=== PATIENT | female | born 1990 | race Caucasian/White ===

== ENCOUNTER 2018-05-02 00:53 | Emergency (ER) | payer OTHER ==
--- NOTE | 2018-05-02 01:00 | ED Physician Documentation ---
PD HPI BACK PAIN - Stated complaint Stated Complaint: BK PX - History obtained from History obtained from: Patient - History of Present Illness Timing - onset: Enter time (06:00), Yesterday (05/01/18) Timing - details: Abrupt onset Pain level now: 10 Location: Lower, Right, Left Quality: Pain Improves with: Rest Worsened by: Movement, Twisting Similar symptoms before: Has not had sx before Recently seen: Not recently seen - Additional information Additional information: c/o pain across lower back radiating around both flanks/sides to front. No specific inciting event; she noticed the pain when she woke yesterday morning at approximately 6 AM and it has gradually, steadily worsened. It is distinctly worse with movement. No h/o similar pain. Review of Systems Constitutional: denies: Fever, Chills, Sweats Cardiac: reports: Reviewed and negative Respiratory: reports: Reviewed and negative GI: denies: Abdominal Pain, Nausea, Vomiting, Constipation, Diarrhea : denies: Dysuria, Frequency, Incontinent Musculoskeletal: reports: Back pain Neurologic: denies: Focal weakness, Numbness PD PAST MEDICAL HISTORY - Past Medical History Past Medical History: No - Past Surgical History Past Surgical History: Yes Ortho: Knee replacement /LIFEGUARD: section - Present Medications Home Medications: Ambulatory Orders Medication Instructions Recorded Confirmed Cyclobenzaprine [Flexeril] 10 mg PO TID PRN #14 tablet 05/02/18 Multivitamin [Multiple Vitamins] 1 tab PO DAILY 05/02/18 05/02/18 oxyCODONE [Roxicodone] 2.5 mg PO Q6H PRN #10 tablet 05/02/18 - Allergies Allergies/Adverse Reactions: Allergies Allergy/AdvReac Type Severity Reaction Status Date / Time latex AdvReac Rash Verified 05/02/18 01:13 PD ED PE NORMAL - Vitals Vital signs reviewed: Yes - General General: Alert and oriented X 3, Well developed/nourished, Other (appears to be uncomfortable) - Cardiac Cardiac: RRR, No murmur - Respiratory Respiratory: No respiratory distress, Clear bilaterally - Abdomen Abdomen: Normal bowel sounds, Soft, Non tender, Non distended - Back Back: No CVA TTP, No spinal TTP - Derm Derm: Normal color, Warm and dry - Extremities Extremities: No edema - Neuro Neuro: No motor deficit (5/5 bilateral dorsi/plantarflexion), No sensory deficit, Other (1+/4 bilateral patellar DTR. ) Results - Vitals Vitals: Vital Signs - 24 hr 05/02/18 05/02/18 05/02/18 01:00 03:22 04:01 Temperature 36.4 C L 36.3 C L Heart Rate 86 74 75 Respiratory 17 18 16 Rate Blood Pressure 117/59 L 94/54 L 105/51 L O2 Saturation 98 98 98 Oxygen O2 Source Room air - Labs Labs: Laboratory Tests 05/02/18 05/02/18 05/02/18 01:09 01:45 01:45 WBC 9.4 RBC 4.13 L Hgb 12.5 Hct 36.1 L MCV 87.3 MCH 30.3 MCHC 34.7 RDW 12.8 Plt Count 260 MPV 8.2 Neut # (Auto) 6.7 H Lymph # (Auto) 1.8 [place] # (Auto) 0.6 Eos # (Auto) 0.3 Baso # (Auto) 0.1 Absolute Nucleated RBC 0.01 Nucleated RBC % 0.1 Sodium 135 Potassium 3.8 Chloride 103 Carbon Dioxide 24 Anion Gap 8.0 BUN 12 Creatinine 0.5 Estimated GFR (MDRD) 147 Glucose 116 H Calcium 8.3 L Total Bilirubin 0.3 AST 23 ALT 20 Alkaline Phosphatase 39 L Total Protein 6.8 Albumin 3.7 Globulin 3.1 Albumin/Globulin Ratio 1.2 Lipase 217 H HCG, Quant Urine Color YELLOW Urine Clarity CLEAR Urine pH 7.5 Ur Specific [place] 1.015 Urine Protein NEGATIVE Urine Glucose (UA) NEGATIVE Urine Ketones NEGATIVE Urine Occult Blood SMALL H Urine Nitrite NEGATIVE Urine Bilirubin NEGATIVE Urine Urobilinogen 0.2 (NORMAL) Ur Leukocyte Esterase NEGATIVE Urine RBC 6-10 H Urine WBC 0-3 Ur Squamous Epith Cells FEW Squamous Urine Bacteria Rare Ur Microscopic Review INDICATED Urine Culture Comments NOT INDICATED Urine HCG, Qual POSITIVE 05/02/18 01:45 WBC RBC Hgb Hct MCV MCH MCHC RDW Plt Count MPV Neut # (Auto) Lymph # (Auto) [place] # (Auto) Eos # (Auto) Baso # (Auto) Absolute Nucleated RBC Nucleated RBC % Sodium Potassium Chloride Carbon Dioxide Anion Gap BUN Creatinine Estimated GFR (MDRD) Glucose Calcium Total Bilirubin AST ALT Alkaline Phosphatase Total Protein Albumin Globulin Albumin/Globulin Ratio Lipase HCG, Quant 08995.00 Urine Color Urine Clarity Urine pH Ur Specific [place] Urine Protein Urine Glucose (UA) Urine Ketones Urine Occult Blood Urine Nitrite Urine Bilirubin Urine Urobilinogen Ur Leukocyte Esterase Urine RBC Urine WBC Ur Squamous Epith Cells Urine Bacteria Ur Microscopic Review Urine Culture Comments Urine HCG, Qual - Rads (name of study) pelvic US Radiology: Prelim report reviewed, See rad report PD MEDICAL DECISION MAKING - ED course Complexity details: reviewed results, re-evaluated patient, considered differential, d/w patient ED course: Patient has been trying to get , and thus, although she was unaware she is now , the test result wasn't particularly surprising to her. US and blood tests provided reassuring results and I reviewed these results with patient. There is a mildly elevated lipase, but her pain does not correlate with this finding (pain is across the low back at the level of the upper sacrum). Departure - Departure Disposition: 01 Home, Self Care Clinical Impression: Back pain, Condition: Good Instructions: NARCOTIC, Oral, ED Neck Back Pain General Follow-Up: Ben Lindquist ARNP [Primary Care Provider] - (Call this morning to arrange for next available appointment) Prescriptions: Cyclobenzaprine [Flexeril] 10 mg PO TID PRN #14 tablet PRN Reason: Spasms oxyCODONE [Roxicodone] 2.5 mg PO Q6H PRN #10 tablet PRN Reason: Pain Forms: Activity restrictions Discharge Date/Time: 05/02/18 04:10
[2018-05-02 01:12] LABS: BILIRUBIN,URINE NEGATIVE (NEGATIVE); GLUCOSE, URINE (UA) NEGATIVE (NEGATIVE); KETONES,URINE (UA) NEGATIVE (NEGATIVE); LEUKOCYTE ESTERASE, URINE NEGATIVE (NEGATIVE); NITRITE,URINE NEGATIVE (NEGATIVE); OCCULT BLOOD,URINE SMALL (NEGATIVE); PH,URINE 7.5 PH (5.0-7.5); PROTEIN,URINE NEGATIVE (NEGATIVE); UROBILINOGEN,URINE 0.2 (NORMAL) E.U./dL (NORMAL)
[2018-05-02 01:14] LABS: CLARITY,URINE CLEAR (CLEAR); HCG UR QUAL POSITIVE
[2018-05-02 01:18] LABS: BACTERIA,URINE Rare /HPF (None Seen); SQUAMOUS EPITHELIAL CELL,UR FEW Squamous (<= Few)
[2018-05-02] MEDS ORDERED: ACETAMINOPHEN 325 MG TABLET PO STA (01:32)
[2018-05-02] MEDS ORDERED: CYCLOBENZAPRINE 10 MG TABLET PO STA (01:33)
[2018-05-02 01:51] LABS: BASOPHILS # (AUTO) 0.1 10^3/uL (0.0-0.1); BASOPHILS % (AUTO) 0.5 %; EOSINOPHILS # (AUTO) 0.3 10^3/uL (0.0-0.7); EOSINOPHILS % (AUTO) 2.9 %; HGB - HEMOGLOBIN 12.5 g/dL (12.0-16.0); LYMPHOCYTES # (AUTO) 1.8 10^3/uL (1.5-3.5); LYMPHOCYTES % (AUTO) 18.8 %; MEAN CORPUSCULAR HEMOGLOBIN 30.3 pg (27.0-31.0); MEAN CORPUSCULAR HGB CONC 34.7 g/dL (32.0-36.0); MEAN CORPUSCULAR VOLUME 87.3 fL (81.0-99.0); MEAN PLATELET VOLUME 8.2 fL (7.9-10.8); MONOCYTES # (AUTO) 0.6 10^3/uL (0.0-1.0); MONOCYTES % (AUTO) 6.4 %; NEUTROPHILS # (AUTO) 6.7 10^3/uL (1.5-6.6); NEUTROPHILS % (AUTO) 71.4 %; PLT - PLATELET COUNT 260 10^3/uL (130-450); RED BLOOD COUNT 4.13 10^6/uL (4.20-5.40); RED CELL DISTRIBUTION WIDTH 12.8 % (12.0-15.0); WHITE BLOOD COUNT 9.4 x10^3/uL (4.8-10.8)
[2018-05-02] MEDS ORDERED: ONDANSETRON ODT 4 MG TABLET TL STA (01:55)
[2018-05-02 02:02] LABS: ALBUMIN 3.7 g/dL (3.2-5.5); ALBUMIN/GLOBULIN RATIO 1.2 (1.0-2.2); BILIRUBIN,TOTAL 0.3 mg/dL (0.2-1.0); CALCIUM 8.3 mg/dL (8.5-10.3); CREATININE 0.5 mg/dL (0.4-1.0); TOTAL PROTEIN 6.8 g/dL (6.7-8.2)
--- NOTE | 2018-05-02 03:24 | Ultrasound Report ---
Reason: , pelvic/back pain Procedure Date: 05/02/2018 Accession Number: [id number] / [id number] Procedure: US - OB First Trimester CPT Code: FULL RESULT: EXAM: FIRST TRIMESTER OBSTETRIC ULTRASOUND (Less than 11 weeks) EXAM DATE: 05/02/2018 03:05 AM. CLINICAL HISTORY: , pelvic/back pain. LMP: Unknown. COMPARISONS: None. TECHNIQUE: Transabdominal and transvaginal ultrasound examination with static image documentation. CLINICAL DATES: EGA unknown. ASSESSMENT: Gestational Sac: Single intrauterine. Mean gestational sac diameter: 27.2 mm = 7 weeks 3 days. Embryo: CRL (crown-rump length) 15.2 mm = 7 weeks 6 days. Cardiac activity: 157 beats per minute. Yolk sac: 3.9 mm. Amniotic fluid: Not accurately assessed at this gestational age. Early placenta: Not visible at this gestational age. Other: No perigestational fluid collection demonstrated. MATERNAL STRUCTURES: Uterus: Anteverted. Unremarkable. Cervix: Closed. Right Ovary/Adnexa: The ovary measures 5.0 x 2.2 x 2.5 cm, volume 14.3 cc. Possible corpus luteum measuring 1.5 x 1.7 x 1.3 cm. Left Ovary/Adnexa: The ovary measures 4.9 x 2.4 x 2.8 cm, volume 17.2 cc. Unremarkable. Free Fluid: None. Other: None. IMPRESSION: 1. Single viable intrauterine at EGA 7 weeks 6 days with JUAN PABLO 12/13/2018 based on crown-rump length. 2. Assigned dating is JUAN PABLO 12/13/2018 based on current US. RADIA
[2018-05-02] MEDS ORDERED: oxyCODONE 5 MG TABLET PO STA (03:49)
[2018-05-02 04:03] VITALS: BP 105/51
== END 2018-05-02 04:10 | disposition home or self-care (01) ==
LOC: ED 00:53
DX: O99.89 Other specified diseases and conditions complicating pregnancy, childbirth and the puerperium (principal); M54.5 Low back pain; Z3A.01 Less than 8 weeks gestation of pregnancy
CPT/HCPCS: 36415; 76801; 76817; 80053; 81001; 81025; 83690; 84702; 85025; 99283; A9270; Q0162; 81003; 87086

== ENCOUNTER 2018-05-06 12:16 | Emergency (ER) | payer OTHER ==
[2018-05-06 13:25] LABS: BILIRUBIN,URINE NEGATIVE (NEGATIVE); GLUCOSE, URINE (UA) NEGATIVE (NEGATIVE); KETONES,URINE (UA) 15 mg/dL (NEGATIVE); LEUKOCYTE ESTERASE, URINE NEGATIVE (NEGATIVE); NITRITE,URINE NEGATIVE (NEGATIVE); OCCULT BLOOD,URINE TRACE-INTA (NEGATIVE); PROTEIN,URINE TRACE mg/dL (NEGATIVE); UROBILINOGEN,URINE 0.2 (NORMAL) E.U./dL (NORMAL)
[2018-05-06 13:27] LABS: CLARITY,URINE HAZY (CLEAR)
[2018-05-06 13:37] LABS: BACTERIA,URINE Many /HPF (None Seen); RBC,URINE 0-5 /HPF (0-5); SQUAMOUS EPITHELIAL CELL,UR MANY Squamous (<= Few)
[2018-05-06 13:38] LABS: MUCUS,URINE Marked Strands
[2018-05-06 13:53] LABS: BASOPHILS # (AUTO) 0.1 10^3/uL (0.0-0.1); BASOPHILS % (AUTO) 0.8 %; EOSINOPHILS # (AUTO) 0.1 10^3/uL (0.0-0.7); HGB - HEMOGLOBIN 13.7 g/dL (12.0-16.0); LYMPHOCYTES # (AUTO) 1.5 10^3/uL (1.5-3.5); MEAN CORPUSCULAR HGB CONC 33.8 g/dL (32.0-36.0); MEAN CORPUSCULAR VOLUME 85.8 fL (81.0-99.0); MEAN PLATELET VOLUME 7.8 fL (7.9-10.8); MONOCYTES # (AUTO) 0.5 10^3/uL (0.0-1.0); MONOCYTES % (AUTO) 4.3 %; NEUTROPHILS # (AUTO) 9.5 10^3/uL (1.5-6.6); NEUTROPHILS % (AUTO) 80.9 %; PLT - PLATELET COUNT 307 10^3/uL (130-450); RED BLOOD COUNT 4.72 10^6/uL (4.20-5.40); RED CELL DISTRIBUTION WIDTH 12.7 % (12.0-15.0); WHITE BLOOD COUNT 11.7 x10^3/uL (4.8-10.8)
[2018-05-06 14:14] LABS: ALBUMIN 4.2 g/dL (3.2-5.5); ALBUMIN/GLOBULIN RATIO 1.2 (1.0-2.2); BILIRUBIN,TOTAL 0.7 mg/dL (0.2-1.0); CREATININE 0.5 mg/dL (0.4-1.0); TOTAL PROTEIN 7.8 g/dL (6.7-8.2)
[2018-05-06] MEDS ORDERED: ONDANSETRON ODT 4 MG TABLET TL STA (16:50)
--- NOTE | 2018-05-06 18:44 | ED Physician Documentation ---
PD HPI NVD - Stated complaint Stated Complaint: ABD PX/DIARRHEA - Chief complaint Chief Complaint: Abd Pain - History of Present Illness Timing - onset: How many weeks ago (1) Timing - duration: Days (7) Timing - details: Gradual onset Pain level max: 5 Pain level now: 3 Associated symptoms: Abdominal pain, Other (Low back pain) Contributing factors: No: Sick contact, Bad food, Travel Improved by: No: Eating, Laying still Worsened by: No: Eating, Moving Review of Systems Ten Systems: 10 systems reviewed and negative Constitutional: reports: Reviewed and negative Eyes: reports: Reviewed and negative Ears: reports: Reviewed and negative Nose: reports: Reviewed and negative Throat: reports: Reviewed and negative Cardiac: reports: Reviewed and negative Respiratory: reports: Reviewed and negative GI: reports: Reviewed and negative : reports: Reviewed and negative Skin: reports: Reviewed and negative Musculoskeletal: reports: Reviewed and negative Neurologic: reports: Reviewed and negative Psychiatric: reports: Reviewed and negative Endocrine: reports: Reviewed and negative Immunocompromised: reports: Reviewed and negative PD PAST MEDICAL HISTORY - Past Medical History Past Medical History: No Other Past Medical History: Reviewed and not relevant - Past Surgical History Past Surgical History: Yes Ortho: Knee replacement /INDOOR LANDSCAPE ARCHITECT: section Other past surgical history: Reviewed and not relevant - Present Medications Home Medications: Ambulatory Orders Medication Instructions Recorded Confirmed Cyclobenzaprine [Flexeril] 10 mg PO TID PRN #14 tablet 05/02/18 Multivitamin [Multiple Vitamins] 1 tab PO DAILY 05/02/18 05/02/18 oxyCODONE [Roxicodone] 2.5 mg PO Q6H PRN #10 tablet 05/02/18 Doxylamine/Pyridoxine HCl 2 each PO DAILY #60 tablet. 05/06/18 [Karen Cosby 10-10 mg Tablet] - Allergies Allergies/Adverse Reactions: Allergies Allergy/AdvReac Type Severity Reaction Status Date / Time latex AdvReac Rash Verified 05/02/18 01:13 - Living Situation Living Situation: reports: With family Living Arrangement: reports: At home - Social History Does the pt smoke?: No Smoking Status: Never smoker Does the pt drink ETOH?: No Does the pt have substance abuse?: No - Family History Family history: reports: Other (Reviewed and not relevant) - Immunizations Immunizations are current?: Yes - POLST Patient has POLST: No PD ED PE NORMAL - Vitals Vital signs reviewed: Yes - General General: Alert and oriented X 3, No acute distress - HEENT HEENT: PERRL - Neck Neck: Supple, no meningeal sign - Cardiac Cardiac: RRR, No murmur - Respiratory Respiratory: Clear bilaterally - Abdomen Abdomen: Normal bowel sounds, Soft, Non tender, Non distended - Derm Derm: Warm and dry - Extremities Extremities: No deformity - Neuro Neuro: Alert and oriented X 3 - Psych Psych: Normal mood, Normal affect Results - Vitals Vitals: Vital Signs - 24 hr 05/06/18 05/06/18 05/06/18 12:42 15:01 15:57 Temperature 36.1 C L Heart Rate 82 88 86 Respiratory 16 18 16 Rate Blood Pressure 130/77 137/83 H 130/68 O2 Saturation 99 98 100 05/06/18 18:57 Temperature Heart Rate 68 Respiratory 16 Rate Blood Pressure 125/75 O2 Saturation 99 Oxygen O2 Source Room air - Labs Labs: Laboratory Tests 05/06/18 05/06/18 05/06/18 12:58 13:45 13:45 WBC 11.7 H RBC 4.72 Hgb 13.7 Hct 40.5 MCV 85.8 MCH 29.0 MCHC 33.8 RDW 12.7 Plt Count 307 MPV 7.8 L Neut # (Auto) 9.5 H Lymph # (Auto) 1.5 [place] # (Auto) 0.5 Eos # (Auto) 0.1 Baso # (Auto) 0.1 Absolute Nucleated RBC 0.01 Nucleated RBC % 0.1 Sodium 133 L Potassium 3.7 Chloride 102 Carbon Dioxide 23 Anion Gap 8.0 BUN 11 Creatinine 0.5 Estimated GFR (MDRD) 147 Glucose 98 Calcium 9.0 Total Bilirubin 0.7 AST 24 ALT 25 Alkaline Phosphatase 44 Total Protein 7.8 Albumin 4.2 Globulin 3.6 Albumin/Globulin Ratio 1.2 Lipase 25 Urine Color YELLOW Urine Clarity HAZY Urine pH 6.0 Ur Specific [place] >=1.030 H Urine Protein TRACE Urine Glucose (UA) NEGATIVE Urine Ketones 15 H Urine Occult Blood TRACE-INTA Urine Nitrite NEGATIVE Urine Bilirubin NEGATIVE Urine Urobilinogen 0.2 (NORMAL) Ur Leukocyte Esterase NEGATIVE Urine RBC 0-5 Urine WBC 0-3 Ur Squamous Epith Cells MANY Squamous H Urine Bacteria Many H Urine Mucus Marked Strands Ur Microscopic Review INDICATED Urine Culture Comments NOT INDICATED PD MEDICAL DECISION MAKING - ED course Complexity details: reviewed old records, reviewed results, re-evaluated patient, considered differential, d/w patient ED course: 27-year-old female with abdominal pain, vomiting, low back pain. Recent labs notable for elevated lipase which is now improved. Labs are otherwise unremarkable. Patient with benign exam and normal vitals. Patient to follow-up with OB and is given likely just for nausea and vomiting.Patient UA consistent w dehydration, patient preferred to orally rehydrate. Departure - Departure Disposition: Home, Self Care Clinical Impression: Vomiting affecting , Dehydration Low back pain during Qualifiers: Trimester: first trimester Qualified Code(s): O26.891 - Other specified related conditions, first trimester Condition: Stable Instructions: ED Flank Pain Uncertain Cause, ED Preg Morning Sickness, ED Diet Vomiting Diarrhea Ch, ED Dehydration Prevent Ch Follow-Up: Ben Lindquist ARNP [Primary Care Provider] - Prescriptions: Doxylamine/Pyridoxine HCl [Karen Cosby 10-10 mg Tablet] 2 each PO DAILY #60 tablet. Comments: Take Tylenol as needed for low back pain according to bottle instructions. Take diclegis as prescribed. Take vitamin. Follow-up with your OB doctor within 1 week. Return w worsening symptoms. Discharge Date/Time: 05/06/18 19:02
[2018-05-06 18:58] VITALS: BP 125/75
== END 2018-05-06 19:02 | disposition home or self-care (01) ==
LOC: ED 12:16
DX: O21.9 Vomiting of pregnancy, unspecified (principal); O99.281 Endocrine, nutritional and metabolic diseases complicating pregnancy, first trimester; E86.0 Dehydration; O99.89 Other specified diseases and conditions complicating pregnancy, childbirth and the puerperium; M54.5 Low back pain; R74.8 Abnormal levels of other serum enzymes; Z3A.00 Weeks of gestation of pregnancy not specified
CPT/HCPCS: 36415; 80053; 81001; 83690; 85025; 99283; Q0162; 81003; 87086

== ENCOUNTER 2018-07-19 03:50 | Emergency (ER) | payer OTHER ==
[2018-07-19 04:00] VITALS: BP 125/75
--- NOTE | 2018-07-19 04:10 | ED Physician Documentation ---
PD HPI FEMALE - Stated complaint Stated Complaint: FEMALE - Chief complaint Chief Complaint: UTI - History obtained from History obtained from: Patient - History of Present Illness Timing - onset: Other ( at 19 weeks gestation presents with 3 days of urinary burning and frequency without flank pain. She is been nauseous, but she is been nauseous throughout the . That is not new. No fevers.) Review of Systems Constitutional: denies: Fever, Chills GI: reports: Nausea. 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 05/06/18 [Karen Cosby 10-10 mg Tablet] Nitrofurantoin Monohyd/M-Cryst 100 mg PO BID #10 capsule 07/19/18 [Macrobid 100 mg Capsule] - Allergies Allergies/Adverse Reactions: Allergies Allergy/AdvReac Type Severity Reaction Status Date / Time Fish Containing Products Allergy Unknown Verified 07/19/18 04:01 peanut Allergy Unknown Verified 07/19/18 04:01 wheat Allergy Unknown Verified 07/19/18 04:01 latex AdvReac Rash Verified 05/02/18 01:13 - Social History Does the pt smoke?: No Smoking Status: Never smoker Does the pt drink ETOH?: No Does the pt have substance abuse?: No - Immunizations Immunizations are current?: Yes - POLST Patient has POLST: No PD ED PE NORMAL - Vitals Vital signs reviewed: Yes - General General: Alert and oriented X 3, No acute distress - Abdomen Abdomen: Soft, Non tender - Female Female : Other (Bedside ultrasound demonstrates single live intrauterine with heart rate of 160.) - Back Back: No CVA TTP - Neuro Neuro: Alert and oriented X 3, Normal speech Results - Vitals Vitals: Vital Signs - 24 hr 07/19/18 03:58 Temperature 36.0 C L Heart Rate 79 Respiratory 16 Rate Blood Pressure 125/75 O2 Saturation 98 Oxygen O2 Source Room air - Labs Labs: Laboratory Tests 07/19/18 04:01 Urine Color ORANGE Urine Clarity CLEAR Urine pH TNP Ur Specific [place] TNP Urine Protein TNP Urine Glucose (UA) TNP Urine Ketones TNP Urine Occult Blood TNP Urine Nitrite TNP Urine Bilirubin TNP Urine Urobilinogen TNP Ur Leukocyte Esterase TNP Urine RBC None Seen Urine WBC 0-3 Ur Epithelial Cells FEW Renal Tubular Ur Squamous Epith Cells MANY Squamous H Amorphous Sediment Moderate Urine Bacteria Few Urine Casts 6-10 Granular Casts Ur Microscopic Review INDICATED Urine Culture Comments Not Reportable Departure - Departure Disposition: Home, Self Care Clinical Impression: Cystitis Qualifiers: Weeks of gestation: 19 weeks Qualified Code(s): Z3A.19 - 19 weeks gestation of Condition: Good Record reviewed to determine appropriate education?: Yes Instructions: ED UTI Cystitis Female Prescriptions: Nitrofurantoin Monohyd/M-Cryst [Macrobid 100 mg Capsule] 100 mg PO BID #10 capsule Comments: As discussed your urine is basically uninterpretable due to the phenazopyridine use. That said, your symptoms are typical for a bladder infection. Return for new or worsening symptoms or if you develop flank pain, fevers,. Follow-up with your OB within the week.
[2018-07-19 04:27] LABS: CLARITY,URINE CLEAR (CLEAR)
[2018-07-19 04:29] LABS: AMORPHOUS SEDIMENT,UR Moderate /LPF; BACTERIA,URINE Few /HPF (None Seen); EPITHELIAL CELLS,UR FEW Renal Tubular /HPF (<= Few); RBC,URINE None Seen /HPF (0-5); SQUAMOUS EPITHELIAL CELL,UR MANY Squamous (<= Few)
[2018-07-19 04:30] LABS: CASTS, URINE 6-10 Granular Casts /LPF
[2018-07-19] MEDS ORDERED: NITROFURANTOIN MACRO 100 MG CAPSULE PO STA (04:35)
== END 2018-07-19 04:43 | disposition home or self-care (01) ==
LOC: ED 03:50
DX: O23.12 Infections of bladder in pregnancy, second trimester (principal); Z3A.19 19 weeks gestation of pregnancy; Z96.659 Presence of unspecified artificial knee joint
CPT/HCPCS: 81001; 99283; A9270; 81003; 87086

== ENCOUNTER 2019-09-18 09:57 | Outpatient (CLI) | payer MEDICAID ==
--- NOTE | 2019-09-18 13:57 | Ultrasound Report ---
Reason: NECK MASS Procedure Date: 09/18/2019 Accession Number: [id number] / [id number] Procedure: US - Head or Neck Soft Tissue CPT Code: Final Report FULL RESULT: EXAM: THYROID ULTRASOUND EXAM DATE: 09/18/2019 10:00 AM. CLINICAL HISTORY: Neck mass, occasional sub-mandibular swelling. COMPARISON: None. TECHNIQUE: Real time sonographic imaging of the thyroid was performed by the die polisher. Multiple lead customer service representative static images were saved for review. FINDINGS: THYROID GLAND: Right Lobe: 4.8 x 1.2 x 1.9 cm, volume 5.7 cc. Normal background echotexture. Right Lobe Nodules: 1. Echogenic nodule lateral mid gland measures 1 x 2 x 3 mm. 2. Echogenic nodule with posterior shadowing lateral mid gland measures 3 x 4 x 5 mm. Left Lobe: 4.5 x 1.2 x 1.2 cm, volume 3.3 cc. Normal background echotexture. Left Lobe Nodules: 1. Complex predominantly cystic nodule with peripheral nonvascular echogenic component measures 4 x 5 x 8 mm. Isthmus: 0.13 cm AP. Normal background echotexture. Isthmic Nodules: None. LYMPH NODES: No adenopathy demonstrated in the central or lateral compartment. Submandibular nodes measure no more than 6 mm in short axis on the right and 5 mm on the left. No mass lesions evident. OTHER: None. IMPRESSION: 1. 2 small echogenic likely partially calcified solid right thyroid nodules. These do not meet CRIS criteria for recommended biopsy. 2. Predominantly cystic likely benign 8 mm left thyroid nodule also does not meet criteria for biopsy. 3. No other neck mass or adenopathy evident. Management recommendations are based on 2015 [place] [employer] Management Guidelines for Adult Patients with Thyroid Nodules and Differentiated Thyroid Cancer. RADIA
== END 2019-09-18 09:58 | disposition home or self-care (01) ==
LOC: DI 09:57
PROVIDERS: ATTEND Registered Nurse
DX: E04.2 Nontoxic multinodular goiter (principal)
CPT/HCPCS: 76536

== ENCOUNTER 2019-10-08 09:46 | Outpatient (CLI) | payer MEDICAID ==
[2019-10-08 11:57] LABS: BASOPHILS # (AUTO) 0.1 10^3/uL (0.0-0.1); EOSINOPHILS # (AUTO) 0.3 10^3/uL (0.0-0.7); EOSINOPHILS % (AUTO) 3.7 %; LYMPHOCYTES # (AUTO) 1.9 10^3/uL (1.5-3.5); LYMPHOCYTES % (AUTO) 24.2 %; MEAN CORPUSCULAR HEMOGLOBIN 28.7 pg (27.0-31.0); MEAN CORPUSCULAR HGB CONC 32.7 g/dL (32.0-36.0); MEAN CORPUSCULAR VOLUME 87.9 fL (81.0-99.0); MEAN PLATELET VOLUME 10.5 fL (7.9-10.8); MONOCYTES # (AUTO) 0.5 10^3/uL (0.0-1.0); MONOCYTES % (AUTO) 5.9 %; NEUTROPHILS # (AUTO) 5.1 10^3/uL (1.5-6.6); NEUTROPHILS % (AUTO) 64.9 %; PLT - PLATELET COUNT 286 10^3/uL (130-450); RED BLOOD COUNT 4.87 10^6/uL (4.20-5.40); RED CELL DISTRIBUTION WIDTH 13.2 % (12.0-15.0); WHITE BLOOD COUNT 7.8 x10^3/uL (4.8-10.8)
[2019-10-08 12:52] LABS: ALBUMIN 4.1 g/dL (3.2-5.5); ALBUMIN/GLOBULIN RATIO 1.4 (1.0-2.2); ALKALINE PHOSPHATASE 38 IU/L (42-121); ALT ALANINE AMINOTRANSFERASE 20 IU/L (10-60); AST ASPARTATE AMINOTRANSFERASE 20 IU/L (10-42); BILIRUBIN,TOTAL 0.3 mg/dL (0.2-1.0); BUN - BLOOD UREA NITROGEN 13 mg/dL (6-20); CARBON DIOXIDE - CO2 23 mmol/L (21-32); CHLORIDE 106 mmol/L (101-111); CHOL/HDL RATIO 4.8 (<4.4); CHOLESTEROL 195 mg/dL; CREATININE 0.6 mg/dL (0.4-1.0); GLUCOSE 86 mg/dL (70-100); HDL CHOLESTEROL 41 mg/dL; LDL CHOLESTEROL,CALCULATED 117 mg/dL; LDL/HDL RATIO 2.9 (<4.4); SODIUM 137 mmol/L (135-145); TOTAL PROTEIN 7.1 g/dL (6.7-8.2); VLDL CHOLESTEROL 37 mg/dL
== END 2019-10-08 23:59 | disposition home or self-care (01) ==
LOC: LAB.WCP 09:46
PROVIDERS: ATTEND Registered Nurse
DX: Z71.89 Other specified counseling (principal); J30.2 Other seasonal allergic rhinitis; Z83.3 Family history of diabetes mellitus; E66.9 Obesity, unspecified
CPT/HCPCS: 36415; 80050; 80061; 83721

== ENCOUNTER 2019-11-04 09:36 | Outpatient (CLI) | payer MEDICAID ==
--- NOTE | 2019-11-04 10:37 | SLEEP CARE CONSULTATION ---
Information from patient questionnaire entered by Linda Mondragon. I have reviewed and concur with the information entered by Linda Mondragon. This document represents the service I personally performed and the decisions made by me, [place] Walker ARNP. History of Present Illness Service Date and Time: 11/04/2019935 Reason for Visit: New patient Chief Complaint: reports: Snoring (only when really sick), Excessive daytime sleepiness (always tired; she is a Mom with three children and puppy), Fatigue, Other (None). denies: Insomnia, Unrefreshed sleep, Observed pauses in breathing, Frequent awakenings at night (only once or twice) Duration of Symptoms: none Usual bedtime: 10 Time it takes to fall asleep: depends Snores at night: Yes (only when sick) Observed to quit breathing while asleep: No Sleeps alone due to snoring: No Number of times waking at night: 1-2 Reasons for waking at night: reports: Bathroom. denies: Choking, Snoring, Gasping for air, Pain, Other Toss, Turn, or Twitch while sleeping: Yes Recalls having dreams: Yes Usually gets out of bed at: 5-6 am Feels refreshed in the morning: No Morning headache: No Sleepy or fatigued during the day: Yes Ever fallen asleep while driving: No (she does not drive much) Takes day naps: No Dreams during day naps: Yes Prior sleep studies: No - Parasomnia Symptoms Ever been unable to move upon waking from sleep: Yes Walks in sleep: No Talks in sleep: No Ever acted out dreams in sleep: Yes (when having PTSD episodes, depending on daily stressors/triggers, dari preg) Ever felt weak in the knees when startled or emotional: No Bothered by creepy, crawly, restless sensations in legs: No Problems with memory or concentration: Yes (mostly newer stuff) Subjective Initial [place] Sleepiness Scale score: 2 (in 2019) Past Medical History Past Medical History: reports: Anxiety, Depression, Attention deficit. 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 Patient is and lives in [place] Have you smoked in the past 12 months: No Alcohol use: No Alcohol amount and frequency: rarely Caffeine use: Yes Caffeine amount and frequency: 1-2 week Family History Family history of sleep disordered breathing: No (not that she knows of) Allergies and Home Medications Drug allergies reviewed: No (wheat, rye, gluten, fish, grasses) Home medication list reviewed: Yes (wellbutrin, anxiety med, control) Review of Systems Cardiovascular: denies: high blood pressure, palpitations, chest pain, irregular heart rate or pulse, leg or foot swelling, have to sleep sitting up Respiratory: denies: shortness of breath, wheeze, sputum production, chronic cough Gastrointestinal: reports: difficulty swallowing, diarrhea, abdominal pain. denies: heartburn Urinary: denies: incontinence, frequency, urgency, impotence, other Neurological: denies: headaches, disorientation, gait or balance problems Psychiatric: reports: Attention Deficit Hyperactivity, anxiety, depression Ear/Nose/Throat: reports: nasal congestion, nose bleeds. denies: dry mouth/throat, injury to nose, tonsillectomy, wisdom teeth removed Endocrine: reports: thyroid disease (thyroid nodules, benign), too hot or cold (feels cold all the time, whole life). denies: history of goiter, sluggishness, excessive thirst, increased appetite, unexplained weakness Musculoskeletal: reports: joint pain, neck pain, back pain, joint swelling, muscle pain or cramping Immunologic: reports: sneezing, rash, itching, allergies to food or environment Physical Exam Heart Rate: 82 O2 Saturation: 99 Height: 5 ft 5 in Weight: 221 lb Body Mass Index: 36.8 BMI Classification: Obese Neck circumference: 17.75 (inches) HEENT: No craniofacial malformation Nostrils: patent to airflow Turbinates: swollen Septum: midline Mouth and throat: normal Soft palate: normal Hard palate: normal Uvula: normal Uvula visualization: 50% Mallampati Class II Tongue: normal in size Tonsils: small Chin and jaw: normal size and position Neck: normal w/o lymphadenopathy or thyromegaly Heart: regular rate and rhythm Lungs: clear bilaterally Impression and Plan Patient present with snoring intermittently, obesity, fatigue, trouble with memory and some excessive daytime sleepiness. She would like to rule out sleep apnea as a cause of her trouble losing weight. She also has an appointment with an ENT for further evaluation. 1. Suspected Obstructive Sleep Apnea-Hypopnea Syndrome, as suggested by a history of irregular snoring, obesity, fatigue, cognitive impairment, and excessive daytime sleepiness. Obesity is a common predisposing factor for obstructive sleep apnea-hypopnea syndrome. I recommend proceeding to polysomnography to confirm the diagnosis and to assess severity. I informed the patient of what the sleep studies involve and after some discussion, obtained agreement to proceed. The pathophysiology of obstructive sleep apnea-hypopnea syndrome was discussed with the patient and health risks of cardiovascular and cerebrovascular disease if not treated. AAS brochure for obstructive sleep apnea-hypopnea syndrome given and reviewed. * Schedule polysomnography and return in 1-2 weeks after the study to discuss result and initiate therapy. * Avoid long distance driving or driving when feeling sleepy. * Avoid alcohol, sedative and muscle relaxant around bedtime. * Attempt to lose weight. * Review instructions provided by trained office staff on how to prepare for the sleep study. * Return for follow-up after sleep study completed. Time Spent with Patient (minutes): 28
== END 2019-11-04 09:37 | disposition home or self-care (01) ==
LOC: SC 09:36
PROVIDERS: ATTEND Nurse Practitioner Family
DX: G47.10 Hypersomnia, unspecified (principal); R53.83 Other fatigue; R06.83 Snoring; E66.9 Obesity, unspecified; Z68.36 Body mass index [BMI] 36.0-36.9, adult
CPT/HCPCS: 99204; 99212

== ENCOUNTER 2020-01-06 08:35 | Emergency (ER) | payer MEDICAID ==
[2020-01-06 09:22] LABS: BASOPHILS # (AUTO) 0.1 10^3/uL (0.0-0.1); BASOPHILS % (AUTO) 1.5 %; EOSINOPHILS # (AUTO) 0.2 10^3/uL (0.0-0.7); EOSINOPHILS % (AUTO) 3.7 %; HGB - HEMOGLOBIN 13.3 g/dL (12.0-16.0); LYMPHOCYTES # (AUTO) 1.3 10^3/uL (1.5-3.5); LYMPHOCYTES % (AUTO) 24.9 %; MEAN CORPUSCULAR HEMOGLOBIN 29.9 pg (27.0-31.0); MEAN CORPUSCULAR HGB CONC 32.6 g/dL (32.0-36.0); MEAN CORPUSCULAR VOLUME 91.7 fL (81.0-99.0); MEAN PLATELET VOLUME 10.7 fL (7.9-10.8); MONOCYTES # (AUTO) 0.4 10^3/uL (0.0-1.0); MONOCYTES % (AUTO) 8.1 %; NEUTROPHILS # (AUTO) 3.2 10^3/uL (1.5-6.6); NEUTROPHILS % (AUTO) 61.6 %; PLT - PLATELET COUNT 251 10^3/uL (130-450); RED BLOOD COUNT 4.45 10^6/uL (4.20-5.40); RED CELL DISTRIBUTION WIDTH 12.6 % (12.0-15.0); WHITE BLOOD COUNT 5.2 x10^3/uL (4.8-10.8)
[2020-01-06 09:23] LABS: BILIRUBIN,URINE NEGATIVE (NEGATIVE); GLUCOSE, URINE (UA) NEGATIVE (NEGATIVE); KETONES,URINE (UA) NEGATIVE (NEGATIVE); LEUKOCYTE ESTERASE, URINE NEGATIVE (NEGATIVE); NITRITE,URINE NEGATIVE (NEGATIVE); OCCULT BLOOD,URINE LARGE (NEGATIVE); PH,URINE 6.5 PH (5.0-7.5); PROTEIN,URINE NEGATIVE (NEGATIVE); UROBILINOGEN,URINE 0.2 (NORMAL) E.U./dL (NORMAL)
[2020-01-06 09:31] LABS: CLARITY,URINE HAZY (CLEAR)
[2020-01-06 09:35] LABS: RBC,URINE 0-5 /HPF (0-5)
[2020-01-06 09:36] LABS: ALBUMIN 4.2 g/dL (3.2-5.5); ALBUMIN/GLOBULIN RATIO 1.4 (1.0-2.2); BILIRUBIN,TOTAL 0.5 mg/dL (0.2-1.0); CALCIUM 8.8 mg/dL (8.5-10.3); CREATININE 0.7 mg/dL (0.4-1.0); TOTAL PROTEIN 7.1 g/dL (6.7-8.2)
[2020-01-06 09:36] LABS: BACTERIA,URINE Few /HPF (None Seen); SQUAMOUS EPITHELIAL CELL,UR FEW Squamous (<= Few)
--- NOTE | 2020-01-06 10:20 | ED Physician Documentation ---
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 She indicates that she had previously been on her control pill continuously and she developed some bleeding and discontinue the use of the control pill. She has not been able to get the bleeding to stop and she is here now for evaluation. Review of Systems Constitutional: denies: Fever Eyes: denies: Decreased vision Ears: denies: Ear pain Nose: denies: Congestion Throat: denies: Sore throat Cardiac: denies: Chest pain / pressure, Palpitations Respiratory: denies: Dyspnea, Cough GI: reports: Abdominal Pain. denies: Nausea, Vomiting, Constipation, Diarrhea : reports: Vaginal bleeding. denies: Dysuria, Frequency, Incontinent Skin: denies: Rash Musculoskeletal: reports: Neck pain (chronically). 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 05/06/18 [Karen Cosby 10-10 mg Tablet] Nitrofurantoin Monohyd/M-Cryst 100 mg PO BID #10 capsule 07/19/18 [Macrobid 100 mg Capsule] - Allergies Allergies/Adverse Reactions: Allergies Allergy/AdvReac Type Severity Reaction Status Date / Time Fish Containing Products Allergy Unknown Verified 01/06/20 08:47 peanut Allergy Unknown Verified 01/06/20 08:47 wheat Allergy Unknown Verified 01/06/20 08:47 latex AdvReac Rash Verified 01/06/20 08:47 - Social History Does the pt smoke?: No Smoking Status: Never smoker Does the pt drink ETOH?: No Does the pt have substance abuse?: No - Immunizations Immunizations are current?: Yes - POLST Patient has POLST: No PD ED PE NORMAL - Vitals Vital signs reviewed: Yes (hypertensive ) - General General: Alert and oriented X 3, No acute distress, Well developed/nourished - HEENT HEENT: Atraumatic, PERRL, EOMI - Neck Neck: Supple, no meningeal sign, No bony TTP - Cardiac Cardiac: RRR, No murmur - Respiratory Respiratory: No respiratory distress, Clear bilaterally - Abdomen Abdomen: Normal bowel sounds, Soft, Non tender, Non distended, No organomegaly - Back Back: No CVA TTP, No spinal TTP - Derm Derm: Normal color, Warm and dry, No rash - Extremities Extremities: No deformity, No edema - Neuro Neuro: Alert and oriented X 3, 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, No motor deficit, No sensory deficit, Normal speech Eye Opening: Spontaneous Motor: Obeys Commands Verbal: Oriented GCS Score: 15 - Psych Psych: Normal mood, Normal affect Results - Vitals Vitals: Vital Signs - 24 hr 01/06/20 01/06/20 08:38 08:46 Temperature 36.5 C Heart Rate 84 80 Respiratory 16 16 Rate Blood Pressure 135/71 H 128/98 H O2 Saturation 99 99 Oxygen O2 Source Room air - Labs Labs: Laboratory Tests 01/06/20 01/06/20 01/06/20 09:01 09:07 09:07 WBC 5.2 RBC 4.45 Hgb 13.3 Hct 40.8 MCV 91.7 MCH 29.9 MCHC 32.6 RDW 12.6 Plt Count 251 MPV 10.7 Neut # (Auto) 3.2 Lymph # (Auto) 1.3 L [place] # (Auto) 0.4 Eos # (Auto) 0.2 Baso # (Auto) 0.1 Absolute Nucleated RBC 0.00 Nucleated RBC % 0.0 Sodium 136 Potassium 3.9 Chloride 103 Carbon Dioxide 23 Anion Gap 10.0 BUN 15 Creatinine 0.7 Estimated GFR (MDRD) 98 Glucose 97 Calcium 8.8 Total Bilirubin 0.5 AST 22 ALT 24 Alkaline Phosphatase 40 L Total Protein 7.1 Albumin 4.2 Globulin 2.9 Albumin/Globulin Ratio 1.4 Lipase 60 H Urine Color DARK YELLOW Urine Clarity HAZY Urine pH 6.5 Ur Specific [place] >=1.030 H Urine Protein NEGATIVE Urine Glucose (UA) NEGATIVE Urine Ketones NEGATIVE Urine Occult Blood LARGE H Urine Nitrite NEGATIVE Urine Bilirubin NEGATIVE Urine Urobilinogen 0.2 (NORMAL) Ur Leukocyte Esterase NEGATIVE Urine RBC 0-5 Urine WBC 0-3 Ur Squamous Epith Cells FEW Squamous Urine Bacteria Few Ur Microscopic Review INDICATED Urine Culture Comments NOT INDICATED PD MEDICAL DECISION MAKING - ED course Complexity details: reviewed old records, reviewed results, re-evaluated patient, considered differential, d/w patient ED course: 29-year-old female with dysfunctional uterine bleeding over the past month has previously been on continuous estrogen and she is now withdrawn. I have indicat ed the patient we will increase her control pill until she has control of her bleeding and then reduce to the regular dose and follow-up with TRIPLE VALVE TESTER. I have referred her to [facility]. Departure - Departure Disposition: Home, Self Care Clinical Impression: Dysfunctional uterine bleeding Condition: Stable Instructions: ED Bleed Irregular Vaginal Follow-Up: [facility] [Provider Group] Comments: Restart taking your control at 2 pills twice per day for 2 days. If you have control of your bleeding reduce to 1 pill daily and follow-up with TRIPLE VALVE TESTER. If you do not get control of your bleeding follow-up immediately with TRIPLE VALVE TESTER.
[2020-01-06 10:39] LABS: HCG UR QUAL NEGATIVE
[2020-01-06 10:49] VITALS: BP 128/65
== END 2020-01-06 10:49 | disposition home or self-care (01) ==
LOC: ED 08:35
DX: N93.8 Other specified abnormal uterine and vaginal bleeding (principal)
CPT/HCPCS: 36415; 80053; 81001; 81003; 81025; 83690; 85025; 87086; 99283; 99284

== ENCOUNTER 2020-01-26 09:18 | Outpatient (CLI) | payer MEDICAID ==
--- NOTE | 2020-01-26 10:47 | XRAY Report ---
PROCEDURE: Knee Standing BILAT INDICATIONS: RT KNEE PAIN TECHNIQUE: 4 views of the right knee, and 4 views of the left knee. COMPARISON: Normal for age, a source of current pain is not identified. No effusion or loose body fo und. FINDINGS: Bones: No acute fractures or dislocations. No suspicious bony lesions. Joint spaces appear normal with weightbearing. Soft tissues: No knee joint effusions. No suspicious soft tissue calcification. IMPRESSION: Reviewed by: Jesse Purvis MD on 01/26/2020 10:45 AM PDT Approved by: Jesse Purvis MD on 01/26/2020 10:45 AM PDT Station ID: [id number]
== END 2020-01-26 09:19 | disposition home or self-care (01) ==
LOC: DI 09:18
PROVIDERS: ATTEND Physician Assistant
DX: M25.561 Pain in right knee (principal)
CPT/HCPCS: 73565

== ENCOUNTER 2020-02-16 14:25 | Outpatient (CLI) | payer MEDICAID ==
[2020-02-16 19:13] LABS: HCG,QUALITATIVE BLOOD NEGATIVE
[2020-02-17 06:48] LABS: HIV AG/AB 4TH GEN NON-REACTIVE (NON-REACTIVE)
[2020-02-17 08:46] LABS: HEPATITIS C ANTIBODY NON-REACTIVE (NON-REACTIVE)
== END 2020-02-16 23:59 | disposition home or self-care (01) ==
LOC: LAB.WCP 14:25
PROVIDERS: ATTEND Nurse Practitioner Family
DX: Z32.00 Encounter for pregnancy test, result unknown (principal); Z11.3 Encounter for screening for infections with a predominantly sexual mode of transmission
CPT/HCPCS: 36415; 84703; 86803; 87389

== ENCOUNTER 2020-03-05 17:41 | Outpatient (CLI) | payer MEDICAID ==
[2020-03-05 18:11] LABS: BASOPHILS # (AUTO) 0.1 10^3/uL (0.0-0.1); BASOPHILS % (AUTO) 1.2 %; EOSINOPHILS # (AUTO) 0.2 10^3/uL (0.0-0.7); EOSINOPHILS % (AUTO) 3.7 %; HGB - HEMOGLOBIN 14.3 g/dL (12.0-16.0); LYMPHOCYTES # (AUTO) 1.9 10^3/uL (1.5-3.5); LYMPHOCYTES % (AUTO) 29.8 %; MEAN CORPUSCULAR HEMOGLOBIN 29.7 pg (27.0-31.0); MEAN CORPUSCULAR HGB CONC 33.3 g/dL (32.0-36.0); MEAN PLATELET VOLUME 10.3 fL (7.9-10.8); MONOCYTES # (AUTO) 0.4 10^3/uL (0.0-1.0); MONOCYTES % (AUTO) 6.6 %; NEUTROPHILS # (AUTO) 3.8 10^3/uL (1.5-6.6); NEUTROPHILS % (AUTO) 58.4 %; PLT - PLATELET COUNT 294 10^3/uL (130-450); RED BLOOD COUNT 4.82 10^6/uL (4.20-5.40); RED CELL DISTRIBUTION WIDTH 11.9 % (12.0-15.0); WHITE BLOOD COUNT 6.5 x10^3/uL (4.8-10.8)
[2020-03-05 18:17] LABS: INR 1.1 (0.8-1.2); PT - PROTHROMBIN TIME 11.8 secs (9.9-12.6)
[2020-03-05 18:27] LABS: ALBUMIN 4.5 g/dL (3.2-5.5); ALBUMIN/GLOBULIN RATIO 1.6 (1.0-2.2); BILIRUBIN,TOTAL 0.3 mg/dL (0.2-1.0); CALCIUM 9.3 mg/dL (8.5-10.3); CREATININE 0.6 mg/dL (0.4-1.0); TOTAL PROTEIN 7.4 g/dL (6.7-8.2)
[2020-03-05 18:35] LABS: HCG,QUALITATIVE BLOOD NEGATIVE
[2020-03-06 08:02] LABS: HIV AG/AB 4TH GEN NON-REACTIVE (NON-REACTIVE)
== END 2020-03-05 17:42 | disposition home or self-care (01) ==
LOC: LAB 17:41
PROVIDERS: ATTEND Nurse Practitioner Family
DX: Z01.812 Encounter for preprocedural laboratory examination (principal)
CPT/HCPCS: 80053; 84703; 85025; 85610; 87389

== ENCOUNTER 2020-03-09 13:04 | Outpatient (CLI) | payer MEDICAID | END 2020-03-09 13:05 | disposition home or self-care (01) | LOC: COV 13:04 | PROVIDERS: ATTEND Family Medicine | DX: Z20.828 Contact with and (suspected) exposure to other viral communicable diseases (principal) ==

== ENCOUNTER 2020-04-06 11:45 | Emergency (ER) | payer MEDICAID ==
--- NOTE | 2020-04-06 12:28 | ED Physician Documentation ---
History of Present Illness - Stated complaint Stated Complaint: BELLY BUTTON INFECTION - Chief complaint Chief Complaint: Wound - History obtained from History obtained from: Patient - Additonal information Additional information: 29-year-old female presents to the emergency department for evaluation of abdominal pain and concerned that she has an umbilicus infection. She reports that on March 24, 2020 she underwent an extensive tummy tuck in [facility]. She does have a very large lower transverse incision as well as a midline vertical incision going through the umbilicus. For the last 2 days she has been having increased belly pain and noticed erythema around her umbilicus. She denies any fevers, dysuria. She is currently taking amoxicillin as she was recently diagnosed with strep pharyngitis. She also reports that she did complete a course of antibiotics following the abdominal incision. Review of Systems Constitutional: denies: Fever Ears: reports: Reviewed and negative Nose: reports: Reviewed and negative Throat: reports: Reviewed and negative Cardiac: reports: Reviewed and negative Respiratory: reports: Reviewed and negative GI: reports: Abdominal Pain. 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 - Present Medications Home Medications: Ambulatory Orders Medication Instructions Recorded Confirmed Multivitamin [Multiple Vitamins] 1 tab PO DAILY 05/02/18 04/06/20 Acetaminophen [Tylenol] 650 mg PO Q6H PRN 04/06/20 04/06/20 Amox/Clav 875/125 [Augmentin] 1 each PO Q12H 04/06/20 04/06/20 Cephalexin [Keflex] 500 mg PO Q6H #28 capsule 04/06/20 buPROPion HCl [Bupropion Xl] 450 mg PO DAILY 04/06/20 04/06/20 - Allergies Allergies/Adverse Reactions: Allergies Allergy/AdvReac Type Severity Reaction Status Date / Time Fish Containing Products Allergy Unknown Verified 04/06/20 11:49 peanut Allergy Unknown Verified 04/06/20 11:49 wheat Allergy Unknown Verified 04/06/20 11:49 latex AdvReac Rash Verified 04/06/20 11:49 - Social History Does the pt smoke?: No Smoking Status: Never smoker Does the pt drink ETOH?: No Does the pt have substance abuse?: No - Immunizations Immunizations are current?: Yes - POLST Patient has POLST: No PD ED PE EXPANDED - General General: Alert, No acute distress, Well developed/nourished - HEENT HEENT: PERRL - Cardiac Cardiac: Regular Rate, Regular Rhythm, Radial strong equal, Pedal strong equal, Cap refill < 2 sec. No: Murmur Present - Respiratory Respiratory: Clear to ausultation jacquelyn. No: Distress, Labored - Abdomen Abdomen: Normal Bowel sounds, Generalized/diffuse (Generally tender abdomen to light palpation. Long low transverse pelvic incision well approximated with no drainage or erythema. There is surrounding ecchymosis. Midline vertical incision through the umbilicus is dehisced with a white appearing mesh underneath.Mild amount of erythema; no drainage) - Derm Derm: Normal color, Other (surgical incisions on abdomen) - Extremities Extremities: Normal, Pedal Pulses Present. No: Pedal edema bilateral, Right calf TTP/cord, Left calf TTP/cord - Neuro Neuro: Alert and Oriented X 3, CNII-XII intact - GCS Eye Opening: Spontaneous Motor: Obeys Commands Verbal: Oriented Total: 15 Results - Vitals Vitals: Vital Signs - 24 hr 04/06/20 04/06/20 11:49 14:14 Temperature 36.8 C Heart Rate 99 83 Respiratory 16 18 Rate Blood Pressure 129/74 127/88 H O2 Saturation 100 98 Oxygen O2 Source Room air - Labs Labs: Laboratory Tests 04/06/20 04/06/20 04/06/20 12:35 12:35 12:38 WBC 10.4 RBC 4.06 L Hgb 11.7 L Hct 36.9 L MCV 90.9 MCH 28.8 MCHC 31.7 L RDW 12.6 Plt Count 464 H MPV 8.9 Neut # (Auto) 7.5 H Lymph # (Auto) 1.7 [place] # (Auto) 0.6 Eos # (Auto) 0.3 Baso # (Auto) 0.1 Absolute Nucleated RBC 0.00 Nucleated RBC % 0.0 Sodium 139 Potassium 4.0 Chloride 102 Carbon Dioxide 26 Anion Gap 11.0 BUN 15 Creatinine 0.6 Estimated GFR (MDRD) 117 Glucose 82 Lactic Acid 1.3 Calcium 9.5 Total Bilirubin 0.5 AST 17 ALT 16 Alkaline Phosphatase 53 Total Protein 7.6 Albumin 4.1 Globulin 3.5 Albumin/Globulin Ratio 1.2 Lipase 98 H Urine Color Urine Clarity Urine pH Ur Specific [place] Urine Protein Urine Glucose (UA) Urine Ketones Urine Occult Blood Urine Nitrite Urine Bilirubin Urine Urobilinogen Ur Leukocyte Esterase Urine RBC Urine WBC Ur Squamous Epith Cells Urine Bacteria Ur Microscopic Review Urine Culture Comments Urine HCG, Qual 04/06/20 Unknown WBC RBC Hgb Hct MCV MCH MCHC RDW Plt Count MPV Neut # (Auto) Lymph # (Auto) [place] # (Auto) Eos # (Auto) Baso # (Auto) Absolute Nucleated RBC Nucleated RBC % Sodium Potassium Chloride Carbon Dioxide Anion Gap BUN Creatinine Estimated GFR (MDRD) Glucose Lactic Acid Calcium Total Bilirubin AST ALT Alkaline Phosphatase Total Protein Albumin Globulin Albumin/Globulin Ratio Lipase Urine Color YELLOW Urine Clarity CLEAR Urine pH 6.0 Ur Specific [place] 1.010 Urine Protein NEGATIVE Urine Glucose (UA) NEGATIVE Urine Ketones NEGATIVE Urine Occult Blood SMALL H Urine Nitrite NEGATIVE Urine Bilirubin NEGATIVE Urine Urobilinogen 0.2 (NORMAL) Ur Leukocyte Esterase NEGATIVE Urine RBC 0-5 Urine WBC 0-3 Ur Squamous Epith Cells FEW Squamous Urine Bacteria None Seen Ur Microscopic Review INDICATED Urine Culture Comments NOT INDICATED Urine HCG, Qual NEGATIVE - Rads (name of study) CT abd Radiology: Final report received (Said skin thickening and subcutaneous fat stranding in the lower anterior abdominal pelvic wall with stent with postsurgical changes and seroma. Appearance is not consistent with abscess collection. No peritoneal free fluid or free air. No bowel obstruction.) PD MEDICAL DECISION MAKING - ED course Complexity details: d/w business objects consultant (Don Larson) ED course: 29-year-old female presents emergency department for concerns of umbilicus infection following recent tummy tuck/surgical repair. On exam she has what I feel may be dehisence of the midline vertical umbilical uncision with pssible exposed graft/mesh underneath. 1253: I spoke with Dr. Carole larson surgeon on-call regarding my concern for surgical incision dehiscence with exposed mesh/graft underneath. She reports to me that what I am seeing may be fibrinous exudate as a part of the healing pr ocess. We will continue with routine labs and a CT of the abdomen. As long as a CT of the abdomen does not show a fluid collection worrisome for abscess then the patient will be stable for follow-up of the wound as an outpatient. 1445: CT of the abdomen does show a large lower transverse abdominal fluid collection most consistent with a seroma. It was not worrisome for abscess formation. Her labs today show no significant leukocytosis. She is afebrile and normotensive. The CT findings were discussed at length with Dr. Ramos. At this time she does suspect that the dehiscence of the umbilicus and the tissue seen below it is likely a fibrinous exudate but not necessarily mesh graft. Patient will be started on Keflex for the next week. The patient will also be seen by Dr. Ramos in the surgical clinic. She has agreed to follow this wound on an outpatient basis. The patient was notified that because the surgery was elective follow-up in the surgical clinic will be [id number] and not covered by insurance. The patient is to use iodine swabs on the outside of her umbilicus tissue twice a day and then pack the wound lightly with saline soaked but not saturated gauze. If at any point she develops fevers has suddenly severe abdominal pain uncontrolled vomiting or concerns of infection she is to return immediately to the ER. Departure - Departure Disposition: 01 Home, Self Care Clinical Impression: Wound dehiscence Condition: Stable Record reviewed to determine appropriate education?: Yes Follow-Up: Logan Larson MD [Provider Admit Priv/Credential] - Prescriptions: Cephalexin [Keflex] 500 mg PO Q6H #28 capsule Comments: Minda the wound surrounding your umbilicus has opened up. This is called dehiscence. We would like you to use the iodine sticks provided twice a day and swab around your umbilicus. After that please use some saline soaked gauze and placed slightly onto the white tissue that you see. Also, please fill the prescription for the antibiotics and begin taking as directed. This wound will likely take many months to heal. Dr. Larson would like to see you in office. Please call the clinic tomorrow in the morning to schedule follow-up. If at any point you have suddenly severe or different abdominal pain, develop any fevers, have uncontrolled vomiting or any concerns of infection please return immediately to the ER.
[2020-04-06] MEDS ORDERED: IOVERSOL 320 100 ML VIAL IVP ONE ×2 (12:41→17:01)
[2020-04-06 12:45] LABS: BILIRUBIN,URINE NEGATIVE (NEGATIVE); GLUCOSE, URINE (UA) NEGATIVE (NEGATIVE); KETONES,URINE (UA) NEGATIVE (NEGATIVE); LEUKOCYTE ESTERASE, URINE NEGATIVE (NEGATIVE); NITRITE,URINE NEGATIVE (NEGATIVE); OCCULT BLOOD,URINE SMALL (NEGATIVE); PROTEIN,URINE NEGATIVE (NEGATIVE); UROBILINOGEN,URINE 0.2 (NORMAL) E.U./dL (NORMAL)
[2020-04-06 12:47] LABS: BASOPHILS # (AUTO) 0.1 10^3/uL (0.0-0.1); EOSINOPHILS # (AUTO) 0.3 10^3/uL (0.0-0.7); EOSINOPHILS % (AUTO) 3.2 %; HGB - HEMOGLOBIN 11.7 g/dL (12.0-16.0); LYMPHOCYTES # (AUTO) 1.7 10^3/uL (1.5-3.5); LYMPHOCYTES % (AUTO) 16.7 %; MEAN CORPUSCULAR HEMOGLOBIN 28.8 pg (27.0-31.0); MEAN CORPUSCULAR HGB CONC 31.7 g/dL (32.0-36.0); MEAN CORPUSCULAR VOLUME 90.9 fL (81.0-99.0); MEAN PLATELET VOLUME 8.9 fL (7.9-10.8); MONOCYTES # (AUTO) 0.6 10^3/uL (0.0-1.0); MONOCYTES % (AUTO) 5.8 %; NEUTROPHILS # (AUTO) 7.5 10^3/uL (1.5-6.6); NEUTROPHILS % (AUTO) 72.5 %; PLT - PLATELET COUNT 464 10^3/uL (130-450); RED BLOOD COUNT 4.06 10^6/uL (4.20-5.40); RED CELL DISTRIBUTION WIDTH 12.6 % (12.0-15.0); WHITE BLOOD COUNT 10.4 x10^3/uL (4.8-10.8)
[2020-04-06 12:49] LABS: CLARITY,URINE CLEAR (CLEAR); HCG UR QUAL NEGATIVE
[2020-04-06 13:01] LABS: ALBUMIN 4.1 g/dL (3.2-5.5); ALBUMIN/GLOBULIN RATIO 1.2 (1.0-2.2); BILIRUBIN,TOTAL 0.5 mg/dL (0.2-1.0); CALCIUM 9.5 mg/dL (8.5-10.3); CREATININE 0.6 mg/dL (0.4-1.0); TOTAL PROTEIN 7.6 g/dL (6.7-8.2)
[2020-04-06 13:02] LABS: BACTERIA,URINE None Seen /HPF (None Seen); RBC,URINE 0-5 /HPF (0-5); SQUAMOUS EPITHELIAL CELL,UR FEW Squamous (<= Few)
[2020-04-06 14:15] VITALS: BP 127/88
--- NOTE | 2020-04-06 14:20 | CT Report ---
PROCEDURE: Abdomen/Pelvis W INDICATIONS: recent extensive tummy tuck; dehisence of umbilics CONTRAST: IV CONTRAST: Optiray 320 ml: 100 PO CONTRAST: *NO PO CONTRAST TECHNIQUE: After the administration of IV contrast, 5 mm thick sections acquired from the diaphragms to the symp hysis. 5 mm thick coronal and sagittal reformats were acquired. For radiation dose reduction, the f ollowing was used: automated exposure control, adjustment of mA and/or kV according to patient size. COMPARISON: None. FINDINGS: Image quality: Excellent. ABDOMEN: Lung bases: There is bibasilar dependent atelectasis posteriorly. Heart size is normal. Solid organs: Liver and spleen are normal in size and enhancement. Gallbladder is within normal lynne its Biliary system is non dilated. Pancreas enhances normally. No adrenal nodules. Kidneys demons trate normal size and enhancement, without hydronephrosis. Peritoneum and bowel: Bowel loops demonstrate normal wall thickness and caliber. No free fluid or a ir. Nodes and vessels: No retroperitoneal or mesenteric adenopathy by size criteria. Aorta and inferior vena cava are normal in size. Miscellaneous: No ventral hernias. There is diffuse lower anterior abdominal/pelvic wall thickening and underlying subcutaneous fat stranding. Ill-defined of fluid pockets are noted in lower abdominal wall deep soft tissue measures up to 12.2 x 4 x 9.7 cm in size along the anterior aspect of rectus ab dominous muscle. No gross underlying abdominal wall muscle involvement. PELVIS: Genitourinary: Bladder wall thickness is normal. Miscellaneous: No inguinal hernias or adenopathy. Bones: No suspicious bony lesions. No vertebral body compression fractures. IMPRESSION: 1. Skin thickening and subcutaneous fat stranding in the lower anterior abdominal/pelvic wall with de ep soft tissue fluid collections as described above most consistent with postsurgical changes and ser andrew. Appearance is not consistent with abscess collection. No underlying rectus muscle involvement is seen. 2. No peritoneal free fluid or free air. No bowel obstruction. No abnormal bowel wall thickening. Reviewed by: Patrice Cameron MD on 04/06/2020 2:19 PM PST Approved by: Patrice Cameron MD on 04/06/2020 2:19 PM PST Station ID: [id number]
--- NOTE | 2020-04-06 17:25 | CONSULTATION NOTE ---
Referring Provider Name of Referring Provider:: KATINA Fu Consult Date: 04/06/20 Chief Complaint - Chief Complaint Chief Complaint: Belly button infection History of Present Illness - Admitted From Admitted From:: ED - History Obtained From Records Reviewed: Provider's notes History obtained from: Patient and provider Exam Limitations: None - History of Present Illness HPI Comment/Other: 29 year old lady who underwent a tummy tuck in [place] on the second of the month. She returned home and feels she has developed and infection. She denies any fever but reports her abdomen has been increasingly tender. She reports some drainage from the umbilical incision and soiling of her clothes. She reports she was also recently diagnosed with strep pharyngitis and has been taking amoxicillin. 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 - POLST Patient has POLST: No Meds/Allgy - Home Medications Home Medications: Ambulatory Orders Medication Instructions Recorded Confirmed Multivitamin [Multiple Vitamins] 1 tab PO DAILY 05/02/18 04/06/20 Acetaminophen [Tylenol] 650 mg PO Q6H PRN 04/06/20 04/06/20 Amox/Clav 875/125 [Augmentin] 1 each PO Q12H 04/06/20 04/06/20 Cephalexin [Keflex] 500 mg PO Q6H #28 capsule 04/06/20 buPROPion HCl [Bupropion Xl] 450 mg PO DAILY 04/06/20 04/06/20 - Allergies Allergies/Adverse Reactions: Allergies Allergy/AdvReac Type Severity Reaction Status Date / Time Fish Containing Products Allergy Unknown Verified 04/06/20 11:49 peanut Allergy Unknown Verified 04/06/20 11:49 wheat Allergy Unknown Verified 04/06/20 11:49 latex AdvReac Rash Verified 04/06/20 11:49 Review of Systems - Constitutional Constitutional: reports: Fatigue. denies: Fever, Chills - Eyes Eyes: denies: Pain - Gastrointestinal Gastrointestinal: reports: Abdominal pain. denies: Abdominal distention, Constipation, Diarrhea - Genitourinary Genitourinary: denies: Dysuria, Frequency, Urgency - Musculoskeletal Musculoskeletal: denies: Muscle pain, Back pain, Muscle aches Exam - Vital Signs Reviewed Vital Signs: Yes Vital Signs: Vital Signs x48h Temp Pulse Resp BP Pulse Ox 04/06/20 14:14 83 18 127/88 H 98 04/06/20 11:49 36.8 C 99 16 129/74 100 - Physical Exam General Appearance: positive: No acute distress, Alert Eyes Bilateral: positive: Normal inspection, PERRL, EOMI ENT: positive: ENT inspection nml, Pharynx nml, No signs of dehydration Neck: positive: Nml inspection Respiratory: positive: Chest non-tender, No respiratory distress Cardiovascular: positive: Regular rate & rhythm Peripheral Pulses: positive: 1+ Abdomen: positive: Other (Healing circumferential umbilical incision with moderated erythema and exposed fibrinous exudate. No truly open area. T ransverse incision is closed and healing with minimal erythema. No defined collection. No edd purulence. Appropriately tender to palpation.) Back: negative: CVA tenderness (R), CVA tenderness (L) Skin: positive: Color nml Neurologic/Psychiatric: positive: Oriented x3 Conclusion and Plan - Lab Results Laboratory Results 04/06/20 : Urine Color YELLOW, Urine Clarity CLEAR, Urine pH 6.0, Ur Specific [place] 1.010, Urine Protein NEGATIVE, Urine Glucose (UA) NEGATIVE, Urine Ketones NEGATIVE, Urine Occult Blood SMALL H, Urine Nitrite NEGATIVE, Urine Bilirubin NEGATIVE, Urine Urobilinogen 0.2 (NORMAL), Ur Leukocyte Esterase NEGATIVE, Urine RBC 0-5, Urine WBC 0-3, Ur Squamous Epith Cells FEW Squamous, Urine Bacteria None Seen, Ur Microscopic Review INDICATED, Urine Culture Comments NOT INDICATED, Urine HCG, Qual NEGATIVE 04/06/20 12:38: Lactic Acid 1.3 04/06/20 12:35: Sodium 139, Potassium 4.0, Chloride 102, Carbon Dioxide 26, Anion Gap 11.0, BUN 15, Creatinine 0.6, Estimated GFR (MDRD) 117, Glucose 82, Calcium 9.5, Total Bilirubin 0.5, AST 17, ALT 16, Alkaline Phosphatase 53, Total Protein 7.6, Albumin 4.1, Globulin 3.5, Albumin/Globulin Ratio 1.2, Lipase 98 H 04/06/20 12:35: WBC 10.4, RBC 4.06 L, Hgb 11.7 L, Hct 36.9 L, MCV 90.9, MCH 28.8, MCHC 31.7 L, RDW 12.6, Plt Count 464 H, MPV 8.9, Neut # (Auto) 7.5 H, Lymph # (Auto) 1.7, [place] # (Auto) 0.6, Eos # (Auto) 0.3, Baso # (Auto) 0.1, Absolute Nucleated RBC 0.00, Nucleated RBC % 0.0 - Diagnostic Imaging Results Diagnostic Imaging Results: positive: Final report reviewed Diagnostic Imaging Results Comments: Expected stranding and inflammatory reaction at this phase of healing without evidence of abscess formation. - Diagnosis Diagnosis: Mild cellulitis of operative incision. - Plan Plan: Agree with plans for Keflex. Also recommend loose clothing and avoid trauma to the area. Recommend follow up with her PCP and her surgeon in [place].
== END 2020-04-06 15:08 | disposition home or self-care (01) ==
LOC: ED 11:45
DX: T81.31XA Disruption of external operation (surgical) wound, not elsewhere classified, initial encounter (principal); Y83.4 Other reconstructive surgery as the cause of abnormal reaction of the patient, or of later complication, without mention of misadventure at the time of the procedure
CPT/HCPCS: 74177; 80053; 81001; 81025; 83605; 83690; 85025; 87040; 99284; Q9967; 81003; 87086

== ENCOUNTER 2020-04-19 23:13 | Emergency (ER) | payer MEDICAID ==
--- NOTE | 2020-04-20 00:39 | ED Physician Documentation ---
History of Present Illness - Stated complaint Stated Complaint: NAVAL INFECTION - Chief complaint Chief Complaint: General - History obtained from History obtained from: Patient - History of Present Illness Timing: How many days ago (2-3) Pain level now: 3 Improved by: nothing Worsened by: tender to palpation - Additonal information Additional information: Patient underwent tummy tuck surgery on March 24, 2020. She was evaluated in this emergency department 10 days ago with concerns of possible wound dehiscence and infection. She was discharged from the emergency department on Keflex, and she has completed the course of Keflex. She presents at this time due to concerns that the infection might be returning. She says that the pain, swelling,redness had improved with the Keflex, but that for the past two or three days, she is having recurrence of focal pain, swelling, and redness at the superior aspect of the umbilical surgical site. Denies fever. She says she has not been able to arrange follow up with any physicians because she has four children and has been unable to arrange for someone to watch them while she has an appointment (she was able to do so tonight) Review of Systems Constitutional: reports: Reviewed and negative GI: reports: Abdominal Pain (focal abdominal wall tenderness, but not abdominal pain per se). 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 04/20/20 - Allergies Allergies/Adverse Reactions: Allergies Allergy/AdvReac Type Severity Reaction Status Date / Time Fish Containing Products Allergy Unknown Verified 04/19/20 23:23 peanut Allergy Unknown Verified 04/19/20 23:23 wheat Allergy Unknown Verified 04/19/20 23:23 latex AdvReac Rash Verified 04/19/20 23:23 - Social History Does the pt smoke?: No Smoking Status: Never smoker Does the pt drink ETOH?: No Does the pt have substance abuse?: No - Immunizations Immunizations are current?: Yes - POLST Patient has POLST: No PD ED PE NORMAL - Vitals Vital signs reviewed: Yes - General General: Alert and oriented X 3, No acute distress, Well developed/nourished - Abdomen Abdomen: Normal bowel sounds, Soft, Non distended - Derm Derm: Warm and dry PD ED PE EXPANDED - Abdomen Abdomen: Surgical scars Abdomen Visual: 1 - laceration (surgical incision site is c/d/I with no discharge; mild erythema on left lateral aspect of the site) 2 - rash (mild, confluent erythema with mild/moderate TTP at cranial-most aspec t of umbilical incision site without discharge or dehiscence) Results - Vitals Vitals: Oxygen O2 Source Room air PD MEDICAL DECISION MAKING - ED course Complexity details: reviewed old records, considered differential, d/w patient ED course: patient says the redness of the umbilical incision site as well as the left lateral aspect of the lower abdominal incision site are worse over past 2-3 days as well as the umbilical tenderness. she says she noted small amount of discharge from the umbilical site although there is no discharge nor fluctuance at this time. emergent testing not indicated at this time, but will restart antibiotic for possible early, focal cellulitis. I emphasized the need for f/u with surgery even if feeling better and to do so in a timely fashion (I recommended she call in the AM to arrange for next available appointment). Departure - Departure Disposition: 01 Home, Self Care Clinical Impression: Post-operative infection Condition: Good Instructions: ED Wound Infec After Surgery Follow-Up: IRMA BILLINGS, MSN, CO FOUNDER AND CHAIRMAN [Primary Care Provider] - Logan Garrison MD [Provider Admit Priv/Credential] - Within 1 week Prescriptions: Doxycycline Hyclate 100 mg PO BID #20 tablet.dr Discharge Date/Time: 04/20/20 01:29
[2020-04-20] MEDS ORDERED: DOXYCYCLINE 100 MG TABLET PO STA (01:03)
[2020-04-20 01:29] VITALS: BP 119/79
== END 2020-04-20 01:29 | disposition home or self-care (01) ==
LOC: ED 23:13
DX: T81.41XA Infection following a procedure, superficial incisional surgical site, initial encounter (principal); Y83.8 Other surgical procedures as the cause of abnormal reaction of the patient, or of later complication, without mention of misadventure at the time of the procedure
CPT/HCPCS: 99282; 99283; A9270

== ENCOUNTER 2020-07-17 11:56 | Emergency (ER) | payer MEDICAID ==
[2020-07-17 12:02] VITALS: BP 136/78
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
[2020-07-17] MEDS ORDERED: LORazepam 1 MG TABLET PO STA (14:14)
[2020-07-17] MEDS ORDERED: LIDOCAINE 1% 2 ML VIAL MC ONE (15:53)
[2020-07-17] MEDS ORDERED: AZITHROMYCIN 250 MG TABLET PO STA (15:53)
[2020-07-17] MEDS ORDERED: cefTRIAXone 250 MG VIAL IM STA (15:53)
[2020-07-17] MEDS ORDERED: ULIPRISTAL ACETATE 30 MG TABLET PO STA (15:59)
== END 2020-07-17 16:27 | disposition home or self-care (01) ==
LOC: ED 11:56
DX: T76.21XA Adult sexual abuse, suspected, initial encounter (principal)
CPT/HCPCS: 0132C; 96372; A9270; J8499; 87491; 87591; 87661

== ENCOUNTER 2020-08-09 08:44 | Emergency (ER) | payer MEDICAID, OTHER ==
--- OUTSIDE RECORDS SUMMARY | 2020-08-09 08:48 | EXTERNAL MEDICAL SUMMARY RPT | Continuity of Care Document ---
:1990 Demographics Phone Unavailable Preferred Language Unknown Marital Status Unknown Tenriism Affiliation Unknown Race Unknown Ethnic Group Unknown Author Organization [place] Address [address] [id number] Phone Social History date description facility [phone]
[2020-08-09 09:08] VITALS: BP 146/82
--- OUTSIDE RECORDS SUMMARY | 2020-08-09 10:28 | EXTERNAL MEDICAL SUMMARY RPT | Continuity of Care Document ---
:1990 Demographics Phone Unavailable Preferred Language Unknown Marital Status Unknown Zoroastrianism Affiliation Unknown Race Unknown Ethnic Group Unknown Author Organization [place] Address [address] [id number] Phone Social History date description facility [phone]
--- NOTE | 2020-08-09 11:19 | ED Physician Documentation ---
History of Present Illness - Stated complaint Stated Complaint: SOA - Chief complaint Chief Complaint: General - History obtained from History obtained from: Patient - Additonal information Additional information: Patient comes emergency department for chief complaint of fatigue. She states that she has felt tired for about the last month and had occasional abdominal pain. She has not really had any other specific symptoms. No shortness of breath or chest pain. No dizziness. No fevers or chills. No headache. No neurologic symptoms other than fatigue. She states that she became concerned b ecause first her cat , and then she started noticing lots of animals around her house including rodents. Patient also states the dog is seems sick and all of her kids are fussy than seem to have changed appetite. Patient states she called poison control who expressed concern for heavy metal poisoning. Patient states that she has a well at her house. She has lived there for 2 years intermittently. No other complaints at this time. Review of Systems Ten Systems: 10 systems reviewed and negative Constitutional: reports: Fatigue Eyes: reports: Reviewed and negative Ears: reports: Reviewed and negative Nose: reports: Reviewed and negative Throat: reports: Reviewed and negative Cardiac: reports: Reviewed and negative Respiratory: reports: Reviewed and negative GI: reports: Abdominal Pain : reports: Reviewed and negative Skin: reports: Reviewed and negative Musculoskeletal: reports: Reviewed and negative Neurologic: reports: Reviewed and negative Psychiatric: reports: Reviewed and negative Endocrine: reports: Reviewed and negative Immunocompromised: reports: Reviewed and negative PD PAST MEDICAL HISTORY - Past Medical History Cardiovascular: None Respiratory: None Neuro: None Endocrine/Autoimmune: None 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 : None HEENT: None Psych: None Musculoskeletal: Chronic back pain Derm: None - Past Surgical History Past Surgical History: Yes 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 - Present Medications Home Medications: Ambulatory Orders Medication Instructions Recorded Confirmed Multivitamin [Multiple Vitamins] 1 tab PO DAILY 05/02/18 08/09/20 buPROPion HCl [Bupropion Xl] 450 mg PO DAILY 04/06/20 08/09/20 - Allergies Allergies/Adverse Reactions: Allergies Allergy/AdvReac Type Severity Reaction Status Date / Time Fish Containing Products Allergy Unknown Verified 08/09/20 09:04 peanut Allergy Unknown Verified 08/09/20 09:04 wheat Allergy Unknown Verified 08/09/20 09:04 latex AdvReac Rash Verified 08/09/20 09:04 - Social History Does the pt smoke?: No Smoking Status: Never smoker Does the pt drink ETOH?: No Does the pt have substance abuse?: No - Immunizations Immunizations are current?: Yes - POLST Patient has POLST: No PD ED PE NORMAL - Vitals Vital signs reviewed: Yes - General General: Alert and oriented X 3, No acute distress, Well developed/nourished - HEENT HEENT: Atraumatic, PERRL, EOMI, Moist mucous membranes - Neck Neck: Supple, no meningeal sign - Cardiac Cardiac: RRR, No murmur - Respiratory Respiratory: No respiratory distress, Clear bilaterally - Abdomen Abdomen: Soft, Non tender, Non distended - Derm Derm: Normal color, Warm and dry, No rash - Extremities Extremities: No deformity - Neuro Neuro: Alert and oriented X 3, electrical tester battery 2-12 intact, No motor deficit, No sensory deficit, Normal speech, Other (Grossly normal.) - Psych Psych: Normal mood, Normal affect Results - Vitals Vitals: Vital Signs - 24 hr 08/09/20 08/09/20 09:04 11:24 Temperature 36.6 C 36.2 C L Heart Rate 88 86 Respiratory 18 16 Rate Blood Pressure 146/82 H O2 Saturation 97 100 Oxygen O2 Source Room air PD MEDICAL DECISION MAKING - ED course Complexity details: considered differential, d/w patient ED course: I discussed with the patient that her symptoms are very vague and it is unclear whether this could be caused by heavy metal poisoning or a myriad of other possible causes. The patient is very concerned about the metals because of her conversation with poison control and stated that she wanted to move forward with testing. As such a heavy metal panel was drawn and sent and is pending at this time. I discussed with the patient that this results would not be back in a timely manner and that she would be discharged and called at home if there were any results of concern. I have advised her to follow-up with her primary care physician for any further concerns regarding her symptoms. We have discussed the usual indications for return. Departure - Departure Disposition: 01 Home, Self Care Clinical Impression: Fatigue Qualifiers: Fatigue type: unspecified Qualified Code(s): R53.83 - Other fatigue Abdominal pain Qualifiers: Abdominal location: generalized Qualified Code(s): R10.84 - Generalized abdominal pain Condition: Stable Instructions: ED Abdominal Pain Unkn Cause, ED Weakness UKO Comments: Your heavy metal panel has been drawn today. This will generally come back in the next several days. He will be contacted if any concerning levels are found. Given the nonspecific nature of your symptoms, as well as your children's, it is hard to say exactly what is causing the symptoms. There is a large number of things that could be contributing, and as such, it is important that you follow- up with your primary care physician to sort all this out. Please call today to make a follow-up appointment. Discharge Date/Time: 08/09/20 11:51
== END 2020-08-09 11:51 | disposition home or self-care (01) ==
LOC: ED 08:44
DX: R53.83 Other fatigue (principal); Z13.89 Encounter for screening for other disorder
CPT/HCPCS: 36415; 82175; 83655; 83825; 99283; 99284

== ENCOUNTER 2020-10-15 18:49 | Outpatient (CLI) | payer MEDICAID ==
--- NOTE | 2020-10-15 19:20 | XRAY Report ---
PROCEDURE: Foot 3 View LT INDICATIONS: CONTUSION OF LEFT FOOT TECHNIQUE: 3 views of the foot were acquired. COMPARISON: None FINDINGS: Bones: No fractures or dislocations. No suspicious bony lesions. Metallic ring overlying the proxi mal and middle phalanx of the second digit obscures evaluation of this region. Soft tissues: No tibiotalar joint effusion. Achilles tendon appears normal. IMPRESSION: No visualized acute fracture or dislocation. However, occult injury cannot be excluded. Recommend masood rt interval imaging follow-up in 7-10 days as clinically indicated for additional evaluation. Reviewed by: Miya Serna MD on 10/15/2020 7:19 PM PDT Approved by: Miya Serna MD on 10/15/2020 7:19 PM PDT Station ID: [id number]
== END 2020-10-15 23:59 | disposition home or self-care (01) ==
LOC: DI.N 18:49
PROVIDERS: ATTEND Physician Assistant Medical
DX: S90.32XA Contusion of left foot, initial encounter (principal)

== ENCOUNTER 2021-01-21 08:00 | Outpatient (CLI) | payer MEDICAID ==
[2021-01-21 23:32] LABS: BACTERIAL VAGINOSIS DNA NEGATIVE (NEGATIVE); CANDIDA GLABRATA DNA NEGATIVE (NEGATIVE); CANDIDA GROUP DNA NEGATIVE (NEGATIVE); CANDIDA KRUSEI DNA NEGATIVE (NEGATIVE); TRICHOMONAS VAGINALIS DNA NEGATIVE (NEGATIVE)
[2021-01-22 17:34] LABS: CHLAMYDIA TRACHOMATIS DNA NEGATIVE (NEGATIVE); NEISSERIA GONORRHOEAE DNA NEGATIVE (NEGATIVE); TRICHOMONAS VAGINALIS DNA NEGATIVE (NEGATIVE)
== END 2021-01-21 23:59 | disposition home or self-care (01) ==
LOC: LAB.N 08:00
PROVIDERS: ATTEND Family Medicine
DX: R39.9 Unspecified symptoms and signs involving the genitourinary system (principal)
CPT/HCPCS: 87086; 87491; 87591; 87661; 87801

== ENCOUNTER 2021-04-25 15:06 | Outpatient (CLI) | payer MEDICAID ==
--- NOTE | 2021-04-28 08:47 | XRAY Report ---
PROCEDURE: Ribs w/PA Chest RT INDICATIONS: CHEST WALL PX TECHNIQUE: 2 views of the left ribs were acquired, along with a single view chest. COMPARISON: None FINDINGS: Surgical changes and devices: None. Bones and chest wall: No fractures or dislocations. No suspicious bony lesions. Overlying soft tis sues appear unremarkable. Lungs and pleura: No pleural effusions or pneumothorax. Lungs appear clear. Mediastinum: Mediastinal contours appear normal. Heart size is normal. IMPRESSION: Normal PA view of the chest and normal right ribs. Reviewed by: Mickey Rockwell on 04/28/2021 8:46 AM [facility] Approved by: Mickey Rockwell on 04/28/2021 8:46 AM [facility] Station ID: [id number]
== END 2021-04-25 15:07 | disposition home or self-care (01) ==
LOC: DI.N 15:06
PROVIDERS: ATTEND Physician Assistant
DX: R07.89 Other chest pain (principal)

== ENCOUNTER 2021-10-11 08:00 | Outpatient (CLI) | payer MEDICAID ==
[2021-10-11 21:05] LABS: BACTERIAL VAGINOSIS DNA NEGATIVE (NEGATIVE); CANDIDA GLABRATA DNA NEGATIVE (NEGATIVE); CANDIDA GROUP DNA NEGATIVE (NEGATIVE); CANDIDA KRUSEI DNA NEGATIVE (NEGATIVE); TRICHOMONAS VAGINALIS DNA NEGATIVE (NEGATIVE)
== END 2021-10-11 23:59 | disposition home or self-care (01) ==
LOC: LAB.N 08:00
PROVIDERS: ATTEND Family Medicine
DX: N89.8 Other specified noninflammatory disorders of vagina (principal)
CPT/HCPCS: 81514

== ENCOUNTER 2022-01-25 12:27 | Emergency (ER) | payer MEDICAID ==
[2022-01-25 13:06] LABS: BASOPHILS # (AUTO) 0.1 10^3/uL (0.0-0.1); BASOPHILS % (AUTO) 1.4 %; EOSINOPHILS # (AUTO) 0.4 10^3/uL (0.0-0.7); EOSINOPHILS % (AUTO) 4.6 %; HCT - HEMATOCRIT 42.6 % (37.0-47.0); HGB - HEMOGLOBIN 13.8 g/dL (12.0-16.0); MEAN CORPUSCULAR HEMOGLOBIN 28.6 pg (27.0-31.0); MEAN CORPUSCULAR HGB CONC 32.4 g/dL (32.0-36.0); MEAN CORPUSCULAR VOLUME 88.4 fL (81.0-99.0); MEAN PLATELET VOLUME 9.9 fL (7.9-10.8); MONOCYTES # (AUTO) 0.6 10^3/uL (0.0-1.0); MONOCYTES % (AUTO) 7.7 %; NEUTROPHILS % (AUTO) 60.9 %; PLT - PLATELET COUNT 293 10^3/uL (130-450); RED BLOOD COUNT 4.82 10^6/uL (4.20-5.40); RED CELL DISTRIBUTION WIDTH 12.5 % (12.0-15.0); WHITE BLOOD COUNT 8.1 x10^3/uL (4.8-10.8)
[2022-01-25] MEDS ORDERED: KETOROLAC 15 MG/ML VIAL IVP STA (13:15)
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
[2022-01-25 13:26] VITALS: BP 136/89
[2022-01-25 13:29] LABS: ALBUMIN 4.6 g/dL (3.2-5.5); ALBUMIN/GLOBULIN RATIO 1.5 (1.0-2.2); BILIRUBIN,TOTAL 0.7 mg/dL (0.2-1.0); CALCIUM 9.3 mg/dL (8.5-10.3); CREATININE 0.5 mg/dL (0.4-1.0); TOTAL PROTEIN 7.7 g/dL (6.7-8.2)
[2022-01-25 13:31] LABS: BILIRUBIN,URINE NEGATIVE (NEGATIVE); GLUCOSE, URINE (UA) NEGATIVE (NEGATIVE); KETONES,URINE (UA) NEGATIVE (NEGATIVE); LEUKOCYTE ESTERASE, URINE NEGATIVE (NEGATIVE); NITRITE,URINE NEGATIVE (NEGATIVE); OCCULT BLOOD,URINE TRACE-INTA (NEGATIVE); PROTEIN,URINE NEGATIVE (NEGATIVE); UROBILINOGEN,URINE 0.2 (NORMAL) E.U./dL (NORMAL)
[2022-01-25 13:38] LABS: CLARITY,URINE CLEAR (CLEAR); HCG UR QUAL NEGATIVE
[2022-01-25] MEDS ORDERED: iohexoL-300 100 ML VIAL ONE (14:11)
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
[2022-01-25] MEDS ORDERED: iohexoL-300 100 ML VIAL IVP ONE (16:36)
== END 2022-01-25 15:05 | disposition home or self-care (01) ==
LOC: ED 12:27
DX: S30.1XXA Contusion of abdominal wall, initial encounter (principal); V43.52XA Car driver injured in collision with other type car in traffic accident, initial encounter; Y92.410 Unspecified street and highway as the place of occurrence of the external cause; K76.0 Fatty (change of) liver, not elsewhere classified
CPT/HCPCS: 36415; 74177; 80053; 81003; 81025; 83690; 85025; 96374; 99283; 99284; Q9967; 81001; 87086

== ENCOUNTER 2022-05-16 22:57 | Outpatient (CLI) | payer MEDICAID | END 2022-05-16 22:58 | disposition critical access hospital (66) | LOC: EMS 22:57 | DX: M25.551 Pain in right hip (principal); R25.2 Cramp and spasm; M54.50 Low back pain, unspecified; M54.6 Pain in thoracic spine; R11.0 Nausea; R42 Dizziness and giddiness; R26.2 Difficulty in walking, not elsewhere classified; W10.8XXA Fall (on) (from) other stairs and steps, initial encounter; Y92.008 Other place in unspecified non-institutional (private) residence as the place of occurrence of the external cause | CPT/HCPCS: A0425; A0429; A0999 ==

== ENCOUNTER 2022-05-16 23:30 | Emergency (ER) | payer MEDICAID ==
[2022-05-16] MEDS ORDERED: methocarbamoL 500 MG TABLET PO STA (23:47)
[2022-05-16] MEDS ORDERED: KETOROLAC 30 MG/ML VIAL IM STA (23:47)
--- NOTE | 2022-05-17 00:55 | ED Physician Documentation ---
History of Present Illness - Stated complaint Stated Complaint: GLF/RT HIP PX - Chief complaint Chief Complaint: Ext Problem - History obtained from History obtained from: Patient - Additonal information Additional information: 31-year-old woman with history of chronic back pain presents s/p fall down 5 steps onto her right hip, back and posterior head. Denies LOC. Ambulatory after the event. This occurred earlier in the day and she waited to come to the emergency department until she could obtain childcare. Review of Systems Musculoskeletal: reports: Back pain, Extremity pain, Joint pain. denies: Neck pain Neurologic: reports: Head injury. 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: section - Present Medications Home Medications: Ambulatory Orders Medication Instructions Recorded Confirmed Multivitamin [Multiple Vitamins] 1 tab PO DAILY 05/02/18 05/17/22 Bupropion HCl [Wellbutrin Xl] 300 mg PO DAILY 01/25/22 05/17/22 Loratadine [All Day Allergy Relief] 10 mg PO DAILY 01/25/22 05/17/22 Ketorolac [Toradol] 10 mg PO Q6H PRN #20 tablet 05/17/22 methocarbamoL [Robaxin] 500 mg PO Q6H #20 tablet 05/17/22 - Allergies Allergies/Adverse Reactions: Allergies Allergy/AdvReac Type Severity Reaction Status Date / Time Fish Containing Products Allergy Unknown Verified 05/17/22 00:33 peanut Allergy Unknown Verified 05/17/22 00:33 shellfish derived Allergy Emesis Verified 05/17/22 00:33 wheat Allergy Unknown Verified 05/17/22 00:33 latex AdvReac Rash Verified 05/17/22 00:33 - Social History Does the pt smoke?: No Smoking Status: Never smoker Does the pt drink ETOH?: No Does the pt have substance abuse?: No - Immunizations Immunizations are current?: Yes - POLST Patient has POLST: No PD ED PE NORMAL - Vitals Vital signs reviewed: Yes - General General: Alert and oriented X 3, No acute distress, Well developed/nourished - HEENT HEENT: Atraumatic, PERRL, EOMI - Neck Neck: No bony TTP - Cardiac Cardiac: RRR - Respiratory Respiratory: No respiratory distress, Clear bilaterally - Derm Derm: Normal color, Warm and dry - Extremities Extremities: No deformity, Other (discomfort with ROM R hip) - Neuro Neuro: Alert and oriented X 3, No motor deficit, No sensory deficit - Psych Psych: Other (depressed affect) Results - Vitals Vitals: Vital Signs - 24 hr 05/16/22 05/17/22 05/17/22 23:35 01:04 01:25 Temperature 37.3 C Heart Rate 93 84 Respiratory 18 15 14 Rate Blood Pressure 126/68 O2 Saturation 100 100 05/17/22 01:58 Temperature Heart Rate 95 Respiratory 14 Rate Blood Pressure O2 Saturation 99 Oxygen O2 Source Room air PD Medical Decision Making - ED course ED course: 31-year-old woman with history of chronic pain presents with multiple complaints status post fall from standing on her steps. Multiple x-rays ordered without acute abnormalities. Independent interpretation by myself and outside radiologist. Discussed this with the patient. Symptomatic care provided with some improvement. Prescription sent to pharmacy. Return precautions given. Plan to follow-up with her primary care provider. Departure - Departure Disposition: 01 Home, Self Care Clinical Impression: Chronic back pain, Hip pain, Fall (on) (from) other stairs and steps, initial encounter Condition: Stable Instructions: Falls Risks Prevent Prescriptions: methocarbamoL [Robaxin] 500 mg PO Q6H #20 tablet Ketorolac [Toradol] 10 mg PO Q6H PRN #20 tablet PRN Reason: Pain Comments: You were seen in the emergency department for evaluation after a fall. Xrays showed no broken bones or dislocations. An electronic prescription for toradol and robaxin was sent to [facility] in [place]. Please follow-up with your primary care provider and return to the emergency department if you have any new or worsening symptoms or other concerns.
--- NOTE | 2022-05-17 01:31 | XRAY Report ---
PROCEDURE: Chest 1 View X-Ray INDICATIONS: s/p fall, R rib pain TECHNIQUE: One view of the chest was acquired. COMPARISON: Rib study 04/25/2021. FINDINGS: Surgical changes and devices: None. Lungs and pleura: There are low lung volumes. No pleural effusions or pneumothorax. Mediastinum: Mediastinal contours appear normal. Heart size is normal. Bones and chest wall: No displaced rib fracture identified. No suspicious bony lesions. Overlying s oft tissues appear unremarkable. IMPRESSION: 1. No displaced rib fracture identified. 2. Low lung volumes without definite acute cardiopulmonary disease. Reviewed by: Jacob Bowen MD on 05/17/2022 1:30 AM PST Approved by: Jacob Bowen MD on 05/17/2022 1:30 AM [facility] Station ID: [id number]
--- NOTE | 2022-05-17 01:53 | XRAY Report ---
PROCEDURE: Femur 2V RT INDICATIONS: hip and inner thigh pain s/p fall TECHNIQUE: 4 views of the femur were acquired. COMPARISON: Concurrent x-ray study of the hip. FINDINGS: Bones: No fractures or dislocations. No suspicious bony lesions. Soft tissues: No suspicious soft tissue calcifications or masses. IMPRESSION: 1. No fracture or dislocation. Reviewed by: Jacob Bowen MD on 05/17/2022 1:52 AM PST Approved by: Jacob Bowen MD on 05/17/2022 1:52 AM PST Station ID: [id number]
--- NOTE | 2022-05-17 01:54 | XRAY Report ---
PROCEDURE: Hip w/Pelvis 2-3V RT INDICATIONS: s/p fall TECHNIQUE: AP pelvis with lateral view of the right hip. COMPARISON: Concurrent x-ray study of the right femur. FINDINGS: Bones: No fractures or dislocations. Pelvic ring appears intact. No suspicious bony lesions. Soft tissues: The visualized bowel gas pattern is normal. No suspicious soft tissue calcifications. IMPRESSION: 1. No fracture or dislocation. Reviewed by: Jacob Bowen MD on 05/17/2022 1:52 AM PST Approved by: Jacob Bowen MD on 05/17/2022 1:52 AM [facility] Station ID: [id number]
--- NOTE | 2022-05-17 01:55 | XRAY Report ---
PROCEDURE: Lumbar Spine 2 View INDICATIONS: s/p fall TECHNIQUE: 2 views of the lumbar spine were acquired. COMPARISON: None. FINDINGS: Bones: 5 [id number] vertebrae are present. There is minimal retrolisthesis of L1-L2 and L2-L3. No definite fractures. Specifically, no vertebral body compression fractures. No suspicious bony le sions. Soft tissues: Overlying bowel gas pattern is normal. No suspicious soft tissue calcifications. IMPRESSION: 1. No evidence of fracture or subluxation. Reviewed by: Jacob Bowen MD on 05/17/2022 1:54 AM PST Approved by: Jacob Bowen MD on 05/17/2022 1:54 AM [facility] Station ID: [id number]
[2022-05-17 02:04] VITALS: BP 135/85
[2022-05-17] MEDS ORDERED: CYCLOBENZAPRINE 10 MG Prepack 2 PO PRN (02:20)
== END 2022-05-17 03:30 | disposition home or self-care (01) ==
LOC: EDUNIT# → ED 23:30
DX: M25.559 Pain in unspecified hip (principal); G89.29 Other chronic pain; W10.9XXA Fall (on) (from) unspecified stairs and steps, initial encounter
CPT/HCPCS: 71045; 72100; 73502; 73552; 96372; 99284; A9270

== ENCOUNTER 2022-12-02 16:56 | Emergency (ER) | payer MEDICAID ==
[2022-12-02 17:03] VITALS: BP 140/90; O2SAT 98
--- OUTSIDE RECORDS SUMMARY | 2022-12-02 17:19 | EXTERNAL MEDICAL SUMMARY RPT | Continuity of Care Document ---
Author Name Unknown Address [address] [place] [address] Phone Organization [facility] Address [address] [place] [address] Phone Care Team Providers Care Benzene Operator Name Role Phone Unavailable Unavailable Unavailable Helena Coughlin Pa-C Unavailable Unavailable Ruthann Grider, Carmita Worley Unavailable Unavailable Ruthann Grider, Carmita Worley Unavailable Unavailable Medications date description facility 2022-09-22 00:00 prednisone All 2022-09-22 00:00 prednisone All 2022-09-27 00:00 prednisone All 2022-09-28 00:00 prednisone All 2022-09-22 00:00 fluticasone propionate All 2022-09-22 00:00 fluticasone propionate All 2022-09-27 00:00 fluticasone propionate All 2022-09-28 00:00 fluticasone propionate All 2022-09-22 00:00 nitrofurantoin monohyd/m-cryst All 2022-09-22 00:00 nitrofurantoin monohyd/m-cryst All 2022-09-27 00:00 nitrofurantoin monohyd/m-cryst All 2022-09-28 00:00 nitrofurantoin monohyd/m-cryst All 2022-09-22 00:00 fluticasone propionate All 2022-09-22 00:00 fluticasone propionate All 2022-09-27 00:00 fluticasone propionate All 2022-09-28 00:00 fluticasone propionate All 2022-09-22 00:00 triamcinolone acetonide All 2022-09-22 00:00 triamcinolone acetonide All 2022-09-27 00:00 triamcinolone acetonide All 2022-09-28 00:00 triamcinolone acetonide All 2022-09-22 00:00 bupropion hcl All 2022-09-22 00:00 bupropion hcl All 2022-09-27 00:00 bupropion hcl All 2022-09-28 00:00 bupropion hcl All 2022-09-22 00:00 montelukast All 2022-09-22 00:00 montelukast All 2022-09-27 00:00 montelukast All 2022-09-28 00:00 montelukast All 2022-09-22 00:00 nitrofurantoin monohyd/m-cryst All 2022-09-22 00:00 nitrofurantoin monohyd/m-cryst All 2022-09-27 00:00 nitrofurantoin monohyd/m-cryst All 2022-09-28 00:00 nitrofurantoin monohyd/m-cryst All 2022-09-22 00:00 nitrofurantoin monohyd/m-cryst All 2022-09-22 00:00 nitrofurantoin monohyd/m-cryst All 2022-09-27 00:00 nitrofurantoin monohyd/m-cryst All 2022-09-28 00:00 nitrofurantoin monohyd/m-cryst All 2022-09-22 00:00 prednisone All 2022-09-22 00:00 prednisone All 2022-09-27 00:00 prednisone All 2022-09-28 00:00 prednisone All 2022-09-22 00:00 fluticasone propionate All 2022-09-22 00:00 fluticasone propionate All 2022-09-27 00:00 fluticasone propionate All 2022-09-28 00:00 fluticasone propionate All 2022-09-22 00:00 prednisone All 2022-09-22 00:00 prednisone All 2022-09-27 00:00 prednisone All 2022-09-28 00:00 prednisone All 2022-09-22 00:00 hydrocortisone All 2022-09-22 00:00 hydrocortisone All 2022-09-27 00:00 hydrocortisone All 2022-09-28 00:00 hydrocortisone All 2022-09-22 00:00 triamcinolone acetonide All 2022-09-22 00:00 triamcinolone acetonide All 2022-09-27 00:00 triamcinolone acetonide All 2022-09-28 00:00 triamcinolone acetonide All 2022-09-22 00:00 prednisone All 2022-09-22 00:00 prednisone All 2022-09-27 00:00 prednisone All 2022-09-28 00:00 prednisone All 2022-09-22 00:00 loratadine All 2022-09-22 00:00 loratadine All 2022-09-27 00:00 loratadine All 2022-09-28 00:00 loratadine All 2022-09-22 00:00 nitrofurantoin monohyd/m-cryst All 2022-09-22 00:00 nitrofurantoin monohyd/m-cryst All 2022-09-27 00:00 nitrofurantoin monohyd/m-cryst All 2022-09-28 00:00 nitrofurantoin monohyd/m-cryst All 2022-09-22 00:00 hydrocortisone All 2022-09-22 00:00 hydrocortisone All 2022-09-27 00:00 hydrocortisone All 2022-09-28 00:00 hydrocortisone All 2022-09-22 00:00 loratadine All 2022-09-22 00:00 loratadine All 2022-09-27 00:00 loratadine All 2022-09-28 00:00 loratadine All 2022-09-22 00:00 loratadine All 2022-09-22 00:00 loratadine All 2022-09-27 00:00 loratadine All 2022-09-28 00:00 loratadine All 2022-09-22 00:00 fluticasone propionate All 2022-09-22 00:00 fluticasone propionate All 2022-09-27 00:00 fluticasone propionate All 2022-09-28 00:00 fluticasone propionate All 2022-09-22 00:00 albuterol sulfate All 2022-09-22 00:00 albuterol sulfate All 2022-09-27 00:00 albuterol sulfate All 2022-09-28 00:00 albuterol sulfate All 2022-09-22 00:00 montelukast All 2022-09-22 00:00 montelukast All 2022-09-27 00:00 montelukast All 2022-09-28 00:00 montelukast All 2022-09-22 00:00 albuterol sulfate All 2022-09-22 00:00 albuterol sulfate All 2022-09-27 00:00 albuterol sulfate All 2022-09-28 00:00 albuterol sulfate All 2022-09-22 00:00 triamcinolone acetonide All 2022-09-22 00:00 triamcinolone acetonide All 2022-09-27 00:00 triamcinolone acetonide All 2022-09-28 00:00 triamcinolone acetonide All 2022-09-22 00:00 montelukast All 2022-09-22 00:00 montelukast All 2022-09-27 00:00 montelukast All 2022-09-28 00:00 montelukast All 2022-09-22 00:00 bupropion hcl All 2022-09-22 00:00 bupropion hcl All 2022-09-27 00:00 bupropion hcl All 2022-09-28 00:00 bupropion hcl All 2022-09-22 00:00 loratadine All 2022-09-22 00:00 loratadine All 2022-09-27 00:00 loratadine All 2022-09-28 00:00 loratadine All 2022-09-22 00:00 hydrocortisone All 2022-09-22 00:00 hydrocortisone All 2022-09-27 00:00 hydrocortisone All 2022-09-28 00:00 hydrocortisone All 2022-09-22 00:00 albuterol sulfate All 2022-09-22 00:00 albuterol sulfate All 2022-09-27 00:00 albuterol sulfate All 2022-09-28 00:00 albuterol sulfate All 2022-09-22 00:00 montelukast All 2022-09-22 00:00 montelukast All 2022-09-27 00:00 montelukast All 2022-09-28 00:00 montelukast All 2022-09-22 00:00 albuterol sulfate All 2022-09-22 00:00 albuterol sulfate All 2022-09-27 00:00 albuterol sulfate All 2022-09-28 00:00 albuterol sulfate All 2022-09-22 00:00 bupropion hcl All 2022-09-22 00:00 bupropion hcl All 2022-09-27 00:00 bupropion hcl All 2022-09-28 00:00 bupropion hcl All 2022-09-22 00:00 hydrocortisone All 2022-09-22 00:00 hydrocortisone All 2022-09-27 00:00 hydrocortisone All 2022-09-28 00:00 hydrocortisone All 2022-09-22 00:00 triamcinolone acetonide All 2022-09-22 00:00 triamcinolone acetonide All 2022-09-27 00:00 triamcinolone acetonide All 2022-09-28 00:00 triamcinolone acetonide All 2022-09-22 00:00 bupropion hcl All 2022-09-22 00:00 bupropion hcl All 2022-09-27 00:00 bupropion hcl All 2022-09-28 00:00 bupropion hcl All Problems date description facility 2022-09-22 00:00 Depressive disorder, not elsewh ere classified All 2022-09-22 00:00 Depressive disorder, not elsewh ere classified All 2022-09-22 00:00 Depressive disorder, not elsewh ere classified All 2022-09-22 00:00 Depressive disorder All 2022-09-22 00:00 Depressive disorder All 2022-09-22 00:00 Major depressive disorder, sing le episode, unspecified All 2022-09-22 00:00 Major depressive disorder, sing le episode, unspecified All 2022-09-22 00:00 Major depressive disorder, sing le episode, unspecified All Procedures date description facility 2022-09-27 00:00 Visit Code Hold All Social History date description facility 2022-09-22 00:00 Never smoker All 2022-09-22 00:00 Never smoker All 2022-09-22 00:00 Never smoker All 2022-09-27 00:00 Never smoker All Vital Signs date measurement value units 2022-09-27 00:00 BMI 36.41 kg/m2 2022-09-27 00:00 BP_diastolic 85 mmHg 2022-09-27 00:00 BP_systolic 128 mmHg 2022-09-27 00:00 heart_rate 81 /min 2022-09-27 00:00 height_metric 165.1 cm 2022-09-27 00:00 height_standard 65 in 2022-09-27 00:00 respiration_rate 16 /min 2022-09-27 00:00 temperature_metric 36.67 C 2022-09-27 00:00 temperature_standard 98 F 2022-09-27 00:00 weight_metric 98.88 kg 2022-09-27 00:00 weight_standard 218 lb
[2022-12-02 17:45] LABS: BASOPHILS # (AUTO) 0.2 10^3/uL (0.0-0.1); BASOPHILS % (AUTO) 1.8 %; EOSINOPHILS # (AUTO) 0.4 10^3/uL (0.0-0.7); HCT - HEMATOCRIT 44.4 % (37.0-47.0); HGB - HEMOGLOBIN 14.5 g/dL (12.0-16.0); LYMPHOCYTES # (AUTO) 2.4 10^3/uL (1.5-3.5); LYMPHOCYTES % (AUTO) 26.8 %; MEAN CORPUSCULAR HGB CONC 32.7 g/dL (32.0-36.0); MEAN CORPUSCULAR VOLUME 85.9 fL (81.0-99.0); MEAN PLATELET VOLUME 9.9 fL (7.9-10.8); MONOCYTES # (AUTO) 0.7 10^3/uL (0.0-1.0); MONOCYTES % (AUTO) 7.8 %; NEUTROPHILS # (AUTO) 5.2 10^3/uL (1.5-6.6); NEUTROPHILS % (AUTO) 59.1 %; PLT - PLATELET COUNT 316 10^3/uL (130-450); RED BLOOD COUNT 5.17 10^6/uL (4.20-5.40); RED CELL DISTRIBUTION WIDTH 12.8 % (12.0-15.0); WHITE BLOOD COUNT 8.8 x10^3/uL (4.8-10.8)
[2022-12-02 17:50] LABS: BILIRUBIN,URINE NEGATIVE (NEGATIVE); GLUCOSE, URINE (UA) NEGATIVE (NEGATIVE); KETONES,URINE (UA) NEGATIVE (NEGATIVE); LEUKOCYTE ESTERASE, URINE NEGATIVE (NEGATIVE); NITRITE,URINE NEGATIVE (NEGATIVE); OCCULT BLOOD,URINE SMALL (NEGATIVE); PROTEIN,URINE NEGATIVE (NEGATIVE); UROBILINOGEN,URINE 0.2 (NORMAL) E.U./dL (NORMAL)
[2022-12-02 17:51] LABS: CLARITY,URINE CLEAR (CLEAR)
[2022-12-02 17:53] LABS: HCG UR QUAL NEGATIVE
[2022-12-02 17:59] LABS: ALBUMIN 4.9 g/dL (3.2-5.5); ALBUMIN/GLOBULIN RATIO 1.5 (1.0-2.2); BILIRUBIN,TOTAL 0.3 mg/dL (0.2-1.0); CALCIUM 10.2 mg/dL (8.5-10.3); CREATININE 0.8 mg/dL (0.6-1.3); POTASSIUM 4.1 mmol/L (3.5-4.5); TOTAL PROTEIN 8.1 g/dL (6.4-8.9)
[2022-12-02 18:02] LABS: BACTERIA,URINE Few /HPF (None Seen); SQUAMOUS EPITHELIAL CELL,UR FEW Squamous (<= Few); WBC,URINE 0-3 /HPF (0-5)
--- NOTE | 2022-12-02 18:20 | ED Physician Documentation ---
PD HPI ABD PAIN - Stated complaint Stated Complaint: - Chief complaint Chief Complaint: Abd Pain - History obtained from History obtained from: Patient - Additional information Additional information: 32-year-old woman presents for the evaluation of pelvic fullness going on since the spring. States that she had some surgeries and has bilateral pelvic pain that comes and goes and seems to alternate. She is on control without a break and has been celibate for many years so is not concerned about STDs. Has had a low-grade fever for the last few days. No discharge or urinary complaints. After discussion, her main concern is that she wants to make sure her tubes were not inadvertently or tied without her permission during one of her surgeries. 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 - Present Medications Home Medications: Ambulatory Orders Medication Instructions Recorded Confirmed Multivitamin [Multiple Vitamins] 1 tab PO DAILY 05/02/18 05/17/22 Loratadine [All Day Allergy Relief] 10 mg PO DAILY 01/25/22 05/17/22 buPROPion HCL [Wellbutrin Xl] 300 mg PO DAILY 01/25/22 05/17/22 Ketorolac [Toradol] 10 mg PO Q6H PRN #20 tablet 05/17/22 methocarbamoL [Robaxin] 500 mg PO Q6H #20 tablet 05/17/22 - Allergies Allergies/Adverse Reactions: Allergies Allergy/AdvReac Type Severity Reaction Status Date / Time Fish Containing Products Allergy Unknown Verified 12/02/22 16:59 peanut Allergy Unknown Verified 12/02/22 16:59 shellfish derived Allergy Emesis Verified 12/02/22 16:59 wheat Allergy Unknown Verified 12/02/22 16:59 latex AdvReac Rash Verified 12/02/22 16:59 - Social History Does the pt smoke?: No Smoking Status: Never smoker Does the pt drink ETOH?: No Does the pt have substance abuse?: No - Immunizations Immunizations are current?: Yes - POLST Patient has POLST: No PD ED PE NORMAL - Vitals Vital signs reviewed: Yes - General General: Alert and oriented X 3, No acute distress - Abdomen Abdomen: Normal bowel sounds, Soft, Non tender - Neuro Neuro: Alert and oriented X 3, Normal speech Results - Vitals Vitals: Vital Signs - 24 hr 12/02/22 16:59 Temperature 36.7 C Heart Rate 100 Respiratory 18 Rate Blood Pressure 140/90 H O2 Saturation 98 Oxygen O2 Source Room air - Labs Labs: Laboratory Tests 12/02/22 12/02/22 12/02/22 17:40 17:40 17:40 WBC 8.8 RBC 5.17 Hgb 14.5 Hct 44.4 MCV 85.9 MCH 28.0 MCHC 32.7 RDW 12.8 Plt Count 316 MPV 9.9 Neut # (Auto) 5.2 Lymph # (Auto) 2.4 [place] # (Auto) 0.7 Eos # (Auto) 0.4 Baso # (Auto) 0.2 H Absolute Nucleated RBC 0.00 Nucleated RBC % 0.0 Sodium 137 Potassium 4.1 Chloride 103 Carbon Dioxide 25 Anion Gap 9.0 BUN 12 Creatinine 0.8 Estimated GFR (MDRD) 83 L Glucose 112 H Calcium 10.2 Total Bilirubin 0.3 AST 19 ALT 16 Alkaline Phosphatase 58 Total Protein 8.1 Albumin 4.9 Globulin 3.2 Albumin/Globulin Ratio 1.5 Lipase 37 Urine Color YELLOW Urine Clarity CLEAR Urine pH 6.0 Ur Specific [place] >=1.030 H Urine Protein NEGATIVE Urine Glucose (UA) NEGATIVE Urine Ketones NEGATIVE Urine Occult Blood SMALL H Urine Nitrite NEGATIVE Urine Bilirubin NEGATIVE Urine Urobilinogen 0.2 (NORMAL) Ur Leukocyte Esterase NEGATIVE Urine RBC 6-10 H Urine WBC 0-3 Ur Squamous Epith Cells FEW Squamous Urine Bacteria Few Ur Microscopic Review INDICATED Urine Culture Comments NOT INDICATED Urine HCG, Qual NEGATIVE - Rads (name of study) pELVIC SONO Relevant Findings:: Final report received PD Medical Decision Making - ED course ED course: 32-year-old woman presents to with subacute pelvic pain worried that her tubes were tied inadvertently or on purpose during surgery related to trauma. She is here wondering if her fallopian tubes are intact. I assured her that it is unlikely that her fallopian tubes were inadvertently damaged during the surgery, but there was no way to definitively diagnose that in the emergency department, and would not qualify as an emergency medical condition regardless. She was concerned that her fallopian tubes were then swollen, and an ultrasound was offered and accepted without pertinent positive diagnostic findings. There is no evidence of infection. She is not sexually active. She is referred to gynecology. Departure - Departure Disposition: 01 Home, Self Care Clinical Impression: Pelvic pain in female Condition: Good Record reviewed to determine appropriate education?: Yes Instructions: ED Pelvic Pain [facility]: [facility] [Provider Group] Comments: Pelvic ultrasound is normal. That rules out swelling of the fallopian tubes and there is no evidence of infection either. For your specific question of are the fallopian tubes intact reasonable to follow-up with one of our gynecologists, the numbers on this form and you can call Sunday for an appointment. Return for new or worsening symptoms. Forms: PCP List Discharge Date/Time: 12/02/22 19:38
--- NOTE | 2022-12-02 19:33 | Ultrasound Report ---
PROCEDURE: Pelvic w/Transvag+Doppler Comp INDICATIONS: pelvic pain TECHNIQUE: Real-time scanning was performed of the pelvic organs, with image documentation. Additional endovagi nal scanning was necessary due to incomplete visualization of the adnexal and endometrial structures by transabdominal scanning. Doppler interrogation was performed of the ovaries bilaterally. COMPARISON: None. FINDINGS: Uterus: Uterus is anteverted and normal in size at 10 x 4.7 x 5.2 cm. The myometrium is homogeneous . The endometrium measures 0.9 mm in combined thickness. Nabothian cyst present. Ovaries: The right ovary measures 2.6 x 1.5 x 1.8 cm, with a calculated ovarian volume of 3.7 cc. T he left ovary measures 2.8 x 1.7 x 1.5 cm, with a calculated ovarian volume of 3.8 cc. Appropriate b lood flow to the ovaries with Doppler interrogation. Less than 12 follicles can be seen in each ova ry. No adnexal masses are seen. No cystic lesions measuring greater than 3 cm. Other: No pathologic free abdominal or pelvic fluid. IMPRESSION: Normal Doppler flow to the ovaries. Reviewed by: Cheo Yates on 12/02/2022 7:31 PM PDT Approved by: Cheo Yates on 12/02/2022 7:31 PM PDT Station ID: [id number]
== END 2022-12-02 19:38 | disposition home or self-care (01) ==
LOC: ED 16:56
DX: R10.2 Pelvic and perineal pain (principal)
CPT/HCPCS: 36415; 80053; 81001; 81003; 81025; 83690; 85025; 87086; 93975; 99282; 99284

== ENCOUNTER 2023-01-05 18:33 | Emergency (ER) | payer MEDICAID ==
--- OUTSIDE RECORDS SUMMARY | 2023-01-05 19:11 | EXTERNAL MEDICAL SUMMARY RPT | Continuity of Care Document ---
Author Name Unknown Address [address] [place] [address] Phone Organization [facility] Address [address] [place] [address] Phone Care Team Providers Care Clinical Educator Name Role Phone Unavailable Unavailable Unavailable Helena Coughlin Pa-C Unavailable Unavailable Medications date description facility 2023-01-05 00:00 prednisone All 2023-01-05 00:00 fluticasone propionate All 2023-01-05 00:00 nitrofurantoin monohyd/m-cryst All 2023-01-05 00:00 fluticasone propionate All 2023-01-05 00:00 triamcinolone acetonide All 2023-01-05 00:00 bupropion hcl All 2023-01-05 00:00 montelukast All 2023-01-05 00:00 nitrofurantoin monohyd/m-cryst All 2023-01-05 00:00 nitrofurantoin monohyd/m-cryst All 2023-01-05 00:00 prednisone All 2023-01-05 00:00 fluticasone propionate All 2023-01-05 00:00 prednisone All 2023-01-05 00:00 hydrocortisone All 2023-01-05 00:00 triamcinolone acetonide All 2023-01-05 00:00 prednisone All 2023-01-05 00:00 loratadine All 2023-01-05 00:00 nitrofurantoin monohyd/m-cryst All 2023-01-05 00:00 hydrocortisone All 2023-01-05 00:00 loratadine All 2023-01-05 00:00 loratadine All 2023-01-05 00:00 fluticasone propionate All 2023-01-05 00:00 albuterol sulfate All 2023-01-05 00:00 montelukast All 2023-01-05 00:00 albuterol sulfate All 2023-01-05 00:00 triamcinolone acetonide All 2023-01-05 00:00 montelukast All 2023-01-05 00:00 bupropion hcl All 2023-01-05 00:00 loratadine All 2023-01-05 00:00 hydrocortisone All 2023-01-05 00:00 albuterol sulfate All 2023-01-05 00:00 montelukast All 2023-01-05 00:00 albuterol sulfate All 2023-01-05 00:00 bupropion hcl All 2023-01-05 00:00 hydrocortisone All 2023-01-05 00:00 triamcinolone acetonide All 2023-01-05 00:00 bupropion hcl All Problems date description facility 2023-01-05 00:00 Venous varices All 2023-01-05 00:00 Wheal All 2023-01-05 00:00 Varices of other sites All 2023-01-05 00:00 Unspecified urticaria All 2023-01-05 00:00 Pain in limb All 2023-01-05 00:00 Varicose veins of other specifi ed sites All 2023-01-05 00:00 Urticaria, unspecified All 2023-01-05 00:00 Pain in right foot All Procedures date description facility 2023-01-05 00:00 Visit Code Hold All Vital Signs date measurement value units 2023-01-05 00:00 BMI 36.41 kg/m2 2023-01-05 00:00 BP_diastolic 77 mmHg 2023-01-05 00:00 BP_systolic 130 mmHg 2023-01-05 00:00 heart_rate 96 /min 2023-01-05 00:00 height_metric 165.1 cm 2023-01-05 00:00 height_standard 65 in 2023-01-05 00:00 respiration_rate 16 /min 2023-01-05 00:00 temperature_metric 36.67 C 2023-01-05 00:00 temperature_standard 98 F 2023-01-05 00:00 weight_metric 98.88 kg 2023-01-05 00:00 weight_standard 218 lb
--- NOTE | 2023-01-05 19:54 | ED Physician Documentation ---
PD HPI LOWER EXT INJURY - Stated complaint Stated Complaint: RT FOOT PX/HIVES - Chief complaint Chief Complaint: Ext Problem - History obtained from History obtained from: Patient - Additional information Additional information: 32-year-old woman has been dealing with right leg pain for the last 3 or 4 months after training for a triathlon. Over the last few days she has developed what she thinks are hives on the leg and then a "guitar string-like cord in the medial thigh and went to urgent care and was referred here for DVT rule out. 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 : None HEENT: None Psych: Depression, Anxiety, ADD/ADHD Musculoskeletal: Chronic back pain Derm: None - Past Surgical History Past Surgical History: Yes Ortho: ACL reconstruction /EQUIPMENT OILER: section - Present Medications Home Medications: Ambulatory Orders Medication Instructions Recorded Confirmed Loratadine [All Day Allergy Relief] 10 mg PO DAILY 01/25/22 01/05/23 buPROPion HCL [Wellbutrin Xl] 300 mg PO DAILY 01/25/22 01/05/23 - Allergies Allergies/Adverse Reactions: Allergies Allergy/AdvReac Type Severity Reaction Status Date / Time Fish Containing Products Allergy Unknown Verified 01/05/23 19:44 peanut Allergy Unknown Verified 01/05/23 19:44 shellfish derived Allergy Emesis Verified 01/05/23 19:44 wheat Allergy Unknown Verified 01/05/23 19:44 latex AdvReac Rash Verified 01/05/23 19:44 - Social History Does the pt smoke?: No Smoking Status: Never smoker Does the pt drink ETOH?: No Does the pt have substance abuse?: No - Immunizations Immunizations are current?: Yes - POLST Patient has POLST: No PD ED PE NORMAL - Vitals Vital signs reviewed: Yes - General General: Alert and oriented X 3, No acute distress - Extremities Extremities: Other (Overtly the right leg appears normal without redness, swelling, calf tenderness.) - Neuro Neuro: Alert and oriented X 3, Normal speech Results - Vitals Vitals: Vital Signs - 24 hr 01/05/23 18:53 Temperature 36.6 C Heart Rate 98 Respiratory 20 Rate Blood Pressure 139/79 H O2 Saturation 99 Oxygen O2 Source Room air - Labs Labs: Laboratory Tests 01/05/23 01/05/23 19:57 19:57 WBC 8.0 RBC 4.97 Hgb 14.3 Hct 43.1 MCV 86.7 MCH 28.8 MCHC 33.2 RDW 12.7 Plt Count 313 MPV 9.9 Neut # (Auto) 4.3 Lymph # (Auto) 2.7 [place] # (Auto) 0.6 Eos # (Auto) 0.4 Baso # (Auto) 0.1 Absolute Nucleated RBC 0.00 Nucleated RBC % 0.0 Sodium 138 Potassium 4.1 Chloride 104 Carbon Dioxide 25 Anion Gap 9.0 BUN 14 Creatinine 0.6 Estimated GFR (MDRD) 115 Glucose 109 H Calcium 10.0 - Rads (name of study) DVT Sono- neg per RDMS Relevant Findings:: Prelim report reviewed PD Medical Decision Making - ED course ED course: 32-year-old woman presents for right leg pain, very subacute and concern for DVT. Also concern for hives on the leg although I do not see any. CBC, BMP, and ultrasound of the right leg were negative/normal. Departure - Departure Disposition: 01 Home, Self Care Clinical Impression: Pain in extremity Condition: Good Record reviewed to determine appropriate education?: Yes Instructions: ED Acute Pain [facility] Comments: ultrasound basic screening labs, CBC, BMP, and ultrasound to evaluate for DVT were negative. Follow-up with your primary care physician for further evaluation and treatment. Return for new or worsening symptoms. Forms: PCP List
[2023-01-05 20:03] LABS: BASOPHILS # (AUTO) 0.1 10^3/uL (0.0-0.1); BASOPHILS % (AUTO) 1.4 %; EOSINOPHILS # (AUTO) 0.4 10^3/uL (0.0-0.7); EOSINOPHILS % (AUTO) 4.5 %; HCT - HEMATOCRIT 43.1 % (37.0-47.0); HGB - HEMOGLOBIN 14.3 g/dL (12.0-16.0); LYMPHOCYTES # (AUTO) 2.7 10^3/uL (1.5-3.5); LYMPHOCYTES % (AUTO) 33.3 %; MEAN CORPUSCULAR HEMOGLOBIN 28.8 pg (27.0-31.0); MEAN CORPUSCULAR HGB CONC 33.2 g/dL (32.0-36.0); MEAN CORPUSCULAR VOLUME 86.7 fL (81.0-99.0); MEAN PLATELET VOLUME 9.9 fL (7.9-10.8); MONOCYTES # (AUTO) 0.6 10^3/uL (0.0-1.0); MONOCYTES % (AUTO) 6.9 %; NEUTROPHILS # (AUTO) 4.3 10^3/uL (1.5-6.6); NEUTROPHILS % (AUTO) 53.7 %; PLT - PLATELET COUNT 313 10^3/uL (130-450); RED BLOOD COUNT 4.97 10^6/uL (4.20-5.40); RED CELL DISTRIBUTION WIDTH 12.7 % (12.0-15.0)
[2023-01-05 20:17] LABS: CREATININE 0.6 mg/dL (0.6-1.3); POTASSIUM 4.1 mmol/L (3.5-4.5)
[2023-01-05 21:04] VITALS: BP 130/70; O2SAT 100
--- NOTE | 2023-01-05 22:04 | Ultrasound Report ---
PROCEDURE: Duplex Ext Veins Right INDICATIONS: leg pain TECHNIQUE: Real-time imaging, as well as color and pulse Doppler interrogation, were performed of the lower extr emity deep veins from the inguinal ligament to the popliteal fossa. Attempted visualization of the ca lf veins was performed. COMPARISON: None. FINDINGS: The deep veins are normally compressible, and free of intraluminal thrombus. Color and pu lse Doppler demonstrate normal phasic intraluminal flow. There is normal augmentation response to di stal compression maneuver. IMPRESSION: No deep venous thrombosis of the visualized lower extremity. Note: Concordant preliminary findings given by the shipping lead person upon the completion of the examination to Dr. Huizar at 8:45 PM on 01/05/2023. Reviewed by: López Huynh MD on 01/05/2023 9:03 PM YNES Approved by: López Huynh MD on 01/05/2023 9:03 PM YNES Station ID: [id number]
== END 2023-01-05 21:00 | disposition home or self-care (01) ==
LOC: ED 18:33
DX: M79.604 Pain in right leg (principal)
CPT/HCPCS: 36415; 80048; 85025; 99283; 99284

== ENCOUNTER 2023-01-05 21:03 | Outpatient (CLI) | payer MEDICAID ==
--- NOTE | 2023-01-06 00:16 | XRAY Report ---
PROCEDURE: Foot 2 View RT INDICATIONS: PAIN IN RIGHT FOOT TECHNIQUE: 4 total views of the foot were acquired, including 3 weight-bearing views. COMPARISON: None. FINDINGS: Bones: No fractures or dislocations. No suspicious bony lesions. Incidental note is made of a bipartite lateral sesamoid bone. Plantar and Achilles calcaneal spurs a re seen. An accessory ossicle is seen, an os trigonum. Soft tissues: No suspicious soft tissue calcifications or masses. IMPRESSION: No acute bony abnormality. Plantar and Achilles calcaneal spurs are seen. If it would be helpful for clinical management decision making, please consider a dedicated MRI of th e foot (without and with contrast) for further evaluation (assuming that there is no contraindication ). Reviewed by: López Huynh MD on 01/05/2023 11:14 PM YNES Approved by: López Huynh MD on 01/05/2023 11:14 PM YNES Station ID: [id number]
== END 2023-01-05 21:04 | disposition home or self-care (01) ==
LOC: DI 21:03
PROVIDERS: ATTEND Nurse Practitioner
DX: M77.31 Calcaneal spur, right foot (principal)

== ENCOUNTER 2023-02-09 08:00 | Outpatient (CLI) | payer MEDICAID ==
[2023-02-09 19:48] LABS: BACTERIAL VAGINOSIS DNA NEGATIVE (NEGATIVE); CANDIDA GLABRATA DNA NEGATIVE (NEGATIVE); CANDIDA GROUP DNA NEGATIVE (NEGATIVE); CANDIDA KRUSEI DNA NEGATIVE (NEGATIVE); TRICHOMONAS VAGINALIS DNA NEGATIVE (NEGATIVE)
[2023-02-09 20:54] LABS: CHLAMYDIA TRACHOMATIS DNA NEGATIVE (NEGATIVE); NEISSERIA GONORRHOEAE DNA NEGATIVE (NEGATIVE)
== END 2023-02-09 23:59 | disposition home or self-care (01) ==
LOC: LAB.WC 08:00
PROVIDERS: ATTEND Obstetrics & Gynecology
DX: N89.8 Other specified noninflammatory disorders of vagina (principal); Z11.3 Encounter for screening for infections with a predominantly sexual mode of transmission
CPT/HCPCS: 81514; 87491; 87591; 87661

== ENCOUNTER 2023-03-17 12:16 | Outpatient (CLI) | payer MEDICAID ==
--- NOTE | 2023-03-19 10:47 | MRI Report ---
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 COMPARISON: None. FINDINGS: Image quality: Excellent. Bones and joints: No bone marrow contusions or metatarsal stress fractures. The sesamoid bones appe ar in expected positions. Bipartite lateral sesamoid of first metatarsal head is seen with internal e ml. No metatarsophalangeal joint degeneration. No intraosseous lesions. Soft tissues: The visualized plantar foot muscles demonstrate normal signal and bulk. Visualized fl exor and extensor tendons appear intact, without tenosynovitis. Fluid distending first MTP joint spac e is seen with suggestion of a ganglion cyst over dorsal aspect of first MTP joint and likely communi cating with the joint measures up to 1.5 x 1.4 x 0.7 cm in size. Sagittal images demonstrate no evide nce for plantar plate tears. The included portion of the plantar fascia is intact. IMPRESSION: 1. Visualized portion of plantar fascia is intact. 2. Edema within bipartite lateral sesamoid of first metatarsal head concerning for low-grade sesamoid itis. No other area of abnormal marrow signal. No metatarsal stress fractures. 3. Fluid within first MTP joint with suggestion of a 1.5 x 1.4 x 0.7 cm ganglion cyst over dorsal asp ect of first MTP joint. No intermetatarsal bursal fluid. Extensor and flexor tendons are intact. Reviewed by: Patrice Cameron MD on 03/19/2023 10:45 AM PST Approved by: Patrice Cameron MD on 03/19/2023 10:45 AM PST Station ID: [id number]
== END 2023-03-17 12:17 | disposition home or self-care (01) ==
LOC: DI 12:16
PROVIDERS: ATTEND Family Medicine
DX: M79.671 Pain in right foot (principal); R60.0 Localized edema

== ENCOUNTER 2023-06-25 08:00 | Outpatient (CLI) | payer MEDICAID ==
--- NOTE | 2023-06-25 14:40 | Ultrasound Report ---
PROCEDURE: Abdomen Limited INDICATIONS: BILAT INNER THIGH LUMP, LUMPS ON ABD TECHNIQUE: Real-time focused scanning was performed of the abdominal wall, with image documentation. COMPARISONS: None. FINDINGS: Targeted ultrasound of the abdominal wall demonstrates no sonographic abnormality. Specifically, no h ernia or mass. No suspicious vascularity. IMPRESSION: Targeted ultrasound of the abdominal wall demonstrates no sonographic abnormality. Specifically, no h ernia or mass. Reviewed by: Yane Alonzo MD on 06/25/2023 2:38 PM PST Approved by: Yane Alonzo MD on 06/25/2023 2:38 PM PST Station ID: [id number]
--- NOTE | 2023-06-25 16:24 | Ultrasound Report ---
PROCEDURE: Extremity Soft Tissue Limited INDICATIONS: BILAT INNER THIGH LUMP, LUMPS ON ABD TECHNIQUE: Real-time scanning was performed of the thighs, with image documentation. COMPARISON: None. FINDINGS: No significant sonographic abnormality is seen corresponding to the palpable areas of concern at the medial thighs. There is mildly prominent subcutaneous fat in these regions without a circumscribed li arlette is seen. No solid soft tissue mass. Normal vascularity is noted. IMPRESSION: No significant sonographic abnormality at the palpable areas of concern at the bilateral medial thighs. Reviewed by: Markell Dutton MD on 06/25/2023 4:23 PM PST Approved by: Markell Dutton MD on 06/25/2023 4:23 PM PST Station ID: [id number]
== END 2023-06-25 08:01 | disposition home or self-care (01) ==
LOC: DI 08:00
PROVIDERS: ATTEND Internal Medicine
DX: R19.00 Intra-abdominal and pelvic swelling, mass and lump, unspecified site (principal); R22.43 Localized swelling, mass and lump, lower limb, bilateral

== ENCOUNTER 2023-06-25 08:26 | Outpatient (CLI) | payer MEDICAID ==
--- NOTE | 2023-06-25 16:28 | Ultrasound Report ---
PROCEDURE: Soft Tissue Head or Neck INDICATIONS: MASS TECHNIQUE: Real-time scanning was performed of the posterior neck, with image documentation. COMPARISON: None FINDINGS: No significant sonographic abnormality is seen corresponding to the palpable abnormality at the midli ne posterior neck. Normal subcutaneous adipose tissue is seen without a circumscribed lipoma or soft tissue mass. Normal vascularity is noted. IMPRESSION: No significant sonographic abnormality at the palpable area of concern at the posterior neck. Reviewed by: Markell Dutton MD on 06/25/2023 4:26 PM PST Approved by: Markell Dutton MD on 06/25/2023 4:26 PM PST Station ID: [id number]
== END 2023-06-25 08:27 | disposition home or self-care (01) ==
LOC: DI 08:26
PROVIDERS: ATTEND Internal Medicine
DX: R22.1 Localized swelling, mass and lump, neck (principal)

== ENCOUNTER 2023-08-04 19:04 | Emergency (ER) | payer MEDICAID ==
--- NOTE | 2023-08-04 20:24 | ED Physician Documentation ---
PD HPI ABD PAIN - Stated complaint Stated Complaint: ABD PX,N/V - Chief complaint Chief Complaint: Abd Pain - History obtained from History obtained from: Patient - Additional information Additional information: HPI from patient. Patient has a number of different complaints that vary over time frame. Her chief complaint is vomiting, episodic with right lower quadrant abdominal pain over the past 2 months. There is no inciting event such as an injury, and there are no exacerbating or ameliorating factors. She says the right lower quadrant pain sometimes radiates around the right flank to the right paralumbar area and, from there, sometimes radiates down the right lower extremity "to the top of my feet" (per patient). Patient also complains of bilateral nare epistaxis, episodic over the past 1 to 2 weeks. She also complains of episodic lightheadedness, over the past 1 to 2 weeks. She has not seen her PCP for any of the symptoms. Patient says she was scheduled to have an umbilical hernia repair this week but "the surgeon canceled on me" (per patient). Past surgical history includes c-sections and previous hernia repair Review of Systems Constitutional: denies: Fever Cardiac: reports: Reviewed and negative Respiratory: reports: Reviewed and negative GI: reports: Abdominal Pain, Nausea, Vomiting. 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: section - Present Medications Home Medications: Ambulatory Orders Medication Instructions Recorded Confirmed Loratadine [All Day Allergy Relief] 10 mg PO DAILY 01/25/22 08/04/23 buPROPion HCL [Wellbutrin Xl] 300 mg PO DAILY 01/25/22 08/04/23 - Allergies Allergies/Adverse Reactions: Allergies Allergy/AdvReac Type Severity Reaction Status Date / Time Fish Containing Products Allergy Unknown Verified 08/04/23 19:36 peanut Allergy Unknown Verified 08/04/23 19:36 shellfish derived Allergy Emesis Verified 08/04/23 19:36 wheat Allergy Unknown Verified 08/04/23 19:36 latex AdvReac Rash Verified 08/04/23 19:36 - Social History Does the pt smoke?: No Smoking Status: Never smoker Does the pt drink ETOH?: No Does the pt have substance abuse?: No - Immunizations Immunizations are current?: Yes - POLST Patient has POLST: No PD ED PE NORMAL - Vitals Vital signs reviewed: Yes - General General: Alert and oriented X 3, No acute distress, Well developed/nourished - HEENT HEENT: Moist mucous membranes - Neck Neck: Supple, no meningeal sign - Cardiac Cardiac: RRR, No murmur - Respiratory Respiratory: No respiratory distress, Clear bilaterally - Abdomen Abdomen: Normal bowel sounds, Soft, Non tender, Non distended - Back Back: No CVA TTP - Extremities Extremities: No edema - Neuro Neuro: Alert and oriented X 3 Results - Vitals Vitals: Vital Signs - 24 hr 08/04/23 08/04/23 08/04/23 19:37 20:11 22:00 Temperature 36.7 C Heart Rate 95 88 84 Respiratory 18 19 16 Rate Blood Pressure 128/96 H 122/86 H O2 Saturation 96 98 98 08/04/23 23:49 Temperature Heart Rate 80 Respiratory 16 Rate Blood Pressure 130/85 H O2 Saturation 99 Oxygen O2 Source Room air - Labs Labs: Laboratory Tests 08/04/23 08/04/23 08/04/23 20:50 20:50 20:50 WBC 7.8 RBC 4.72 Hgb 13.4 Hct 41.2 MCV 87.3 MCH 28.4 MCHC 32.5 RDW 12.8 Plt Count 284 MPV 10.1 Neut # (Auto) 4.9 Lymph # (Auto) 2.1 [place] # (Auto) 0.5 Eos # (Auto) 0.2 Baso # (Auto) 0.1 Absolute Nucleated RBC 0.00 Nucleated RBC % 0.0 Sodium 136 Potassium 3.5 Chloride 104 Carbon Dioxide 24 Anion Gap 8.0 BUN 12 Creatinine 0.6 Estimated GFR (MDRD) 114 Glucose 133 H Calcium 9.6 Total Bilirubin 0.6 AST 20 ALT 14 Alkaline Phosphatase 44 Total Protein 7.2 Albumin 4.4 Globulin 2.8 Albumin/Globulin Ratio 1.6 Lipase 49 Urine Color YELLOW Urine Clarity CLEAR Urine pH 6.0 Ur Specific [place] >=1.030 H Urine Protein TRACE Urine Glucose (UA) NEGATIVE Urine Ketones 15 H Urine Occult Blood SMALL H Urine Nitrite NEGATIVE Urine Bilirubin NEGATIVE Urine Urobilinogen 0.2 (NORMAL) Ur Leukocyte Esterase NEGATIVE Urine RBC 6-10 H Urine WBC 0-3 Ur Squamous Epith Cells MANY Squamous H Urine Bacteria Moderate H Ur Microscopic Review INDICATED Urine Culture Comments NOT INDICATED Urine HCG, Qual NEGATIVE - Rads (name of study) CT A/P with PO contrast Relevant Findings:: Prelim report reviewed, See rad report PD Medical Decision Making - ED course Complexity details: reviewed results, re-evaluated patient, considered differential, d/w patient, d/w family ED course: Difficult to narrow down the differential given the numerous complaints are over various timeframes and seemingly various organ systems. Given that her chief complaint seems to be abdominal pain episodes with nausea and vomiting, the focus of the workup is geared towards this issue. A CT of the abdomen pelvis with intravenous and oral contrast was undertaken. Blood tests and urinalysis were also performed, as biliary colic, renal colic would also be in the differential with episodic right-sided abdominal pain with vomiting. CBC is normal. ER abdominal panel is normal except for insignificant/noncontributory finding of mildly elevated blood glucose (133). LFTs and lipase are normal. Urine hCG is negative. Urinalysis with 6-10 RBC/hpf but no WBC. Moderate bacteria but contaminated with squamous cells. Patient drank some of the p.o. contrast then decided she did not want to drink anymore the contrast. Additionally, before the CT was undertaken, she insisted that the IV be removed and thus the CT was performed without IV contrast and only limited PO contrast. Multiple gallstones on CT without gallbladder distention, wall thickening, or ductal dilatation. The chief c/o right flank/back pain that is episodic with n/v could be c/w biliary colic, although lack of distended GB and normal LFTs suggest this is not an emergent problem at this time (no evidence of cholecystitis, cholangitis), and the gallstones might even be an incidental finding. However, there are no other test results to suggest any other diagnoses such as renal colic, appendicitis, SBO. Results d/w patient. She is in NAD at the time of reevaluation. Return precautions reviewed. I strongly suggested to her that she contact PCP to arrange for next available appointment for further evaluation of her symptoms. Departure - Departure Disposition: 01 Home, Self Care Clinical Impression: Biliary colic Condition: Good Instructions: ED Gallstone W Biliary Colic Follow-Up: Bradley Buck MD [Primary Care Provider] - Comments: There were no concerning nor diagnostic findings on tonight's blood tests; your complete blood count, electrolytes, kidney function tests, liver function tests, and pancreatic enzyme test (lipase) were all normal. As we discussed, your urinalysis has some blood in the sample, but no other abnormalities to suggest a specific diagnosis such as urinary tract infection. It is unclear at this time why there is blood in your urine; your primary care provider can reevaluate this abnormality The CT scan shows multiple gallstones in your gallbladder. As we discussed, this certainly could account for the episodic abdominal pain with the nausea and vomiting. Follow-up with your primary care provider for reevaluation as well as to obtain referral to a general surgeon to discuss options for treatment for the gallbladder/gallstones. There was no evidence of other abnormality (such as appendicitis, kidney stones, or bowel obstruction). Discharge Date/Time: 08/04/23 23:56
[2023-08-04] MEDS ORDERED: DIATRIZOATE MEGLU/DIATRIZO SOD 30 ML BOTTLE PO ONE (20:50)
[2023-08-04 21:00] LABS: BASOPHILS # (AUTO) 0.1 10^3/uL (0.0-0.1); BASOPHILS % (AUTO) 1.1 %; EOSINOPHILS # (AUTO) 0.2 10^3/uL (0.0-0.7); EOSINOPHILS % (AUTO) 3.1 %; HCT - HEMATOCRIT 41.2 % (37.0-47.0); HGB - HEMOGLOBIN 13.4 g/dL (12.0-16.0); LYMPHOCYTES # (AUTO) 2.1 10^3/uL (1.5-3.5); LYMPHOCYTES % (AUTO) 26.9 %; MEAN CORPUSCULAR HEMOGLOBIN 28.4 pg (27.0-31.0); MEAN CORPUSCULAR HGB CONC 32.5 g/dL (32.0-36.0); MEAN CORPUSCULAR VOLUME 87.3 fL (81.0-99.0); MEAN PLATELET VOLUME 10.1 fL (7.9-10.8); MONOCYTES # (AUTO) 0.5 10^3/uL (0.0-1.0); MONOCYTES % (AUTO) 5.9 %; NEUTROPHILS # (AUTO) 4.9 10^3/uL (1.5-6.6); NEUTROPHILS % (AUTO) 62.9 %; PLT - PLATELET COUNT 284 10^3/uL (130-450); RED BLOOD COUNT 4.72 10^6/uL (4.20-5.40); RED CELL DISTRIBUTION WIDTH 12.8 % (12.0-15.0); WHITE BLOOD COUNT 7.8 x10^3/uL (4.8-10.8)
[2023-08-04 21:02] LABS: BILIRUBIN,URINE NEGATIVE (NEGATIVE); GLUCOSE, URINE (UA) NEGATIVE (NEGATIVE); KETONES,URINE (UA) 15 mg/dL (NEGATIVE); LEUKOCYTE ESTERASE, URINE NEGATIVE (NEGATIVE); NITRITE,URINE NEGATIVE (NEGATIVE); OCCULT BLOOD,URINE SMALL (NEGATIVE); PROTEIN,URINE TRACE mg/dL (NEGATIVE); UROBILINOGEN,URINE 0.2 (NORMAL) E.U./dL (NORMAL)
[2023-08-04 21:13] LABS: CLARITY,URINE CLEAR (CLEAR); HCG UR QUAL NEGATIVE
[2023-08-04 21:14] LABS: ALBUMIN 4.4 g/dL (3.2-5.5); ALBUMIN/GLOBULIN RATIO 1.6 (1.0-2.2); BACTERIA,URINE Moderate /HPF (None Seen); BILIRUBIN,TOTAL 0.6 mg/dL (0.2-1.0); CALCIUM 9.6 mg/dL (8.5-10.3); CREATININE 0.6 mg/dL (0.6-1.3); POTASSIUM 3.5 mmol/L (3.5-4.5); SQUAMOUS EPITHELIAL CELL,UR MANY Squamous (<= Few); TOTAL PROTEIN 7.2 g/dL (6.4-8.9); WBC,URINE 0-3 /HPF (0-5)
[2023-08-04] MEDS: ONDANSETRON 4 MG/2 ML VIAL IVP STA (21:55)
[2023-08-04] MEDS: SODIUM CHLORIDE 0.9% 1,000 ML IV STA (21:55)
[2023-08-04] MEDS: DIATRIZOATE MEGLU/DIATRIZO SOD 30 ML BOTTLE PO ONE (22:25)
--- NOTE | 2023-08-04 22:42 | CT Report ---
PROCEDURE: Abdomen/Pelvis WO INDICATIONS: abd. pain TECHNIQUE: A CT scan of the abdomen and pelvis was performed without the use of intravenous contrast. Images we re recorded and evaluated at appropriate window settings. Reformats: coronal and sagittal. For radiat ion dose reduction, the following was used: automated exposure control, adjustment of mA and/or kV ac cording to patient size. COMPARISON: CT abdomen/pelvis . FINDINGS: Image quality: Diagnostic. Lower chest: Unremarkable. Liver: No contour-deforming mass. Gallbladder and biliary tree: Multiple moderate-sized gallstones are present within the gallbladder l umen but there is no evidence of gallbladder wall thickening or adjacent inflammation. Spleen: No splenomegaly. Pancreas: No pancreatic ductal dilation. Adrenals: No adrenal nodule. Kidneys and ureters: No hydronephrosis. No renal cystic lesion which requires follow up. No solid mas s. Stomach, bowel and peritoneum: No bowel distension. No pathologic free fluid. Lymph nodes: No central or retroperitoneal adenopathy. Vessels: No infrarenal aortic aneurysm. PELVIS Reproductive organs: Unremarkable. Bladder: No wall thickness, accounting for underdistention. Pelvic lymph nodes: No pelvic adenopathy by size criteria. Bones: No aggressive osseous abnormality. Other: No significant ventral or inguinal hernia. A normal or abnormal appendix could not be located. There is no secondary CT evidence of acute appendicitis. IMPRESSION: No hydronephrosis or obstructing renal stone. Multiple gallstones that are peripherally calcified are present within the gallbladder lumen but ther e is no sign of acute cholecystitis or biliary obstruction. A normal or abnormal appendix could not be located. Quality of visualization is somewhat limited by t he absence of both oral and intravenous contrast. The patient declined to proceed with receiving intr avenous contrast. Reviewed by: Jesse Purvis MD on 08/04/2023 10:41 PM PDT Approved by: Jesse Purvis MD on 08/04/2023 10:41 PM PDT Station ID: [id number]
[2023-08-04 23:52] VITALS: BP 130/85; O2SAT 99
== END 2023-08-04 23:56 | disposition home or self-care (01) ==
LOC: ED 19:04
DX: K80.50 Calculus of bile duct without cholangitis or cholecystitis without obstruction (principal); Z79.899 Other long term (current) drug therapy; Z91.040 Latex allergy status
CPT/HCPCS: 36415; 74176; 80053; 81001; 81025; 83690; 85025; 99284; Q9963; 81003; 87086

== ENCOUNTER 2023-09-28 18:13 | Emergency (ER) | payer MEDICAID ==
--- NOTE | 2023-09-28 18:53 | ED Physician Documentation ---
PD HPI HEADACHE - Stated complaint Stated Complaint: [place] - Chief complaint Chief Complaint: Neuro - History obtained from History obtained from: Patient - Additional information Additional information: 33-year-old woman presents with headache. She developed a gradual onset but fairly severe frontal headache today associated with sinus congestion and chills but no fevers. She was recently treated for sinus infection with I think Augmentin. Last antibiotic was about 2 weeks ago and that had resolved. She was also on steroids for that. She has a history of migraines but this does not feel like a migraine. It was gradual in onset and frontal. She has had some bloody sinus drainage. She did drive here and is accompanied by her daughter. 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: section - Present Medications Home Medications: Ambulatory Orders Medication Instructions Recorded Confirmed Loratadine [All Day Allergy Relief] 10 mg PO DAILY 01/25/22 08/04/23 buPROPion HCL [Wellbutrin Xl] 300 mg PO DAILY 01/25/22 08/04/23 SUMAtriptan [Imitrex] 25 mg PO BID PRN #10 tablet 09/28/23 - Allergies Allergies/Adverse Reactions: Allergies Allergy/AdvReac Type Severity Reaction Status Date / Time Fish Containing Products Allergy Unknown Verified 09/28/23 18:38 gluten Allergy Unknown Verified 09/28/23 18:38 peanut Allergy Unknown Verified 09/28/23 18:38 shellfish derived Allergy Emesis Verified 09/28/23 18:38 wheat Allergy Unknown Verified 09/28/23 18:38 latex AdvReac Rash Verified 09/28/23 18:38 - Social History Does the pt smoke?: No Smoking Status: Never smoker Does the pt drink ETOH?: No Does the pt have substance abuse?: No - Immunizations Immunizations are current?: Yes - POLST Patient has POLST: No PD ED PE NORMAL - Vitals Vital signs reviewed: Yes - General General: Alert and oriented X 3, Other (She appears uncomfortable and light sensitive.) - HEENT HEENT: PERRL, EOMI, Other (Swollen nasal mucosa especially on the right with bilateral maxillary sinus tenderness.) - Neck Neck: Supple, no meningeal sign, No bony TTP - Derm Derm: No rash - Neuro Neuro: Alert and oriented X 3, button facing machine operator 2-12 intact Eye Opening: Spontaneous Motor: Obeys Commands Verbal: Oriented GCS Score: 15 Results - Vitals Vitals: Vital Signs - 24 hr 09/28/23 09/28/23 18:38 19:55 Temperature 37.1 C Heart Rate 100 97 Respiratory 16 16 Rate Blood Pressure 130/76 124/70 O2 Saturation 99 96 Oxygen O2 Source Room air - Rads (name of study) [facility]- Relevant Findings:: Final report received, EMP independent interpretation of test PD Medical Decision Making - ED course ED course: She appears uncomfortable but not meningitic. Head CT was done which was negative for intracranial processes and also did not show any fluid in the sinuses so I do not think it is a sinus infection. She was administered Toradol with some relief, although at the time of my reevaluation had only about 15 minutes after the Toradol. On reexamination she remained without meningismus. 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 Does not seem like a concerning or worrisome headache with respect to something like subarachnoid hemorrhage or meningitis. That said she was given close return precautions. Departure - Departure Disposition: 01 Home, Self Care Clinical Impression: Headache Qualifiers: Headache type: unspecified Headache chronicity pattern: acute headache Intractability: intractable Qualified Code(s): R51.9 - Headache, unspecified Condition: Good Record reviewed to determine appropriate education?: Yes Instructions: ED Cephalgia Unspecified Prescriptions: SUMAtriptan [Imitrex] 25 mg PO BID PRN #10 tablet PRN Reason: Headache Comments: Return if you develop fevers, neck stiffness, or other new or worrisome symptoms are not better over the next day or 2. Follow-up with your primary care doctor, next available appointment. Your CAT scan was normal, the head looked okay and there was no fluid in the sinuses. That does not mean you do not have a sinus headache, but it would not be a bacterial sinus infection I do not think. I sent the prescription electronically to [facility] in [place]. Forms: PCP List Discharge Date/Time: 09/28/23 19:55
[2023-09-28] MEDS: KETOROLAC 60 MG/2 ML VIAL IM STA (19:17)
--- NOTE | 2023-09-28 19:27 | CT Report ---
PROCEDURE: Head WO INDICATIONS: headache TECHNIQUE: Noncontrast 4.5 mm thick angled axial sections acquired from the foramen magnum to the vertex. For r adiation dose reduction, the following was used: automated exposure control, adjustment of mA and/or kV according to patient size. COMPARISON: None. FINDINGS: Image quality: Excellent. CSF spaces: Basal cisterns are patent. No extra-axial fluid collections. Ventricles are normal in size and shape. Brain: No midline shift. No intracranial masses or hemorrhage. Sebastian-white matter interface is norm al. Skull and face: Calvarium and visualized facial bones are intact, without suspicious lesions. Sinuses: Visualized sinuses and mastoids are clear. IMPRESSION: No acute intracranial pathology. Reviewed by: Noam Ferreira MD on 09/28/2023 7:25 PM PDT Approved by: Noam Ferreira MD on 09/28/2023 7:25 PM PDT Station ID: [id number]
[2023-09-28 20:02] VITALS: BP 124/70; O2SAT 96
== END 2023-09-28 19:55 | disposition home or self-care (01) ==
LOC: ED 18:13
DX: R51.9 Headache, unspecified (principal); Z79.899 Other long term (current) drug therapy; Z91.040 Latex allergy status
CPT/HCPCS: 96372; 99284

== ENCOUNTER 2024-01-13 12:01 | Emergency (ER) | payer MEDICAID ==
[2024-01-13 12:26] VITALS: BP 133/80; O2SAT 96
--- NOTE | 2024-01-13 12:36 | ED Physician Documentation ---
PD HPI SKIN - Stated complaint Stated Complaint: SKIN ITCHY,IRRITATED - Chief complaint Chief Complaint: Wound - Additional information Additional information: 33-year-old female presents emergency department for ongoing itchy painful skin. Patient says that she has multiple allergies and was recently on a work trip where she is unsure about all the food that she was eating and also swam in a pool and is wondering if maybe she is having a side effect from the chlorine. She has an EpiPen at home but has not felt like she needed 1 she has no shortness of breath no difficulty breathing. There are couple spots on her chest that have been there for about 4 days now that she describes as itchy as well as ear fullness. No chest pain or shortness of breath no recent illnesses no fevers or chills. PD PAST MEDICAL HISTORY - Past Medical History Past Medical History: Yes Cardiovascular: None Respiratory: None Neuro: None Endocrine/Autoimmune: None GI: Other PHARMACY GENERAL MANAGER: None : None HEENT: None Psych: Depression, Anxiety, ADD/ADHD Musculoskeletal: Chronic back pain Derm: Eczema, Psoriasis - Past Surgical History Past Surgical History: Yes Ortho: ACL reconstruction /PHARMACY GENERAL MANAGER: section - Present Medications Home Medications: Ambulatory Orders Medication Instructions Recorded Confirmed Loratadine [All Day Allergy Relief] 10 mg PO DAILY 01/25/22 08/04/23 buPROPion HCL [Wellbutrin Xl] 300 mg PO DAILY 01/25/22 08/04/23 SUMAtriptan [Imitrex] 25 mg PO BID PRN #10 tablet 09/28/23 Desonide 15 gm TP BID 14 Days #1 applic 01/13/24 predniSONE [Deltasone] 40 mg PO DAILY 5 Days #10 tablet 01/13/24 - Allergies Allergies/Adverse Reactions: Allergies Allergy/AdvReac Type Severity Reaction Status Date / Time Fish Containing Products Allergy Unknown Verified 09/28/23 18:38 gluten Allergy Unknown Verified 09/28/23 18:38 peanut Allergy Unknown Verified 09/28/23 18:38 shellfish derived Allergy Emesis Verified 09/28/23 18:38 wheat Allergy Unknown Verified 09/28/23 18:38 latex AdvReac Rash Verified 09/28/23 18:38 - Social History Does the pt smoke?: No Smoking Status: Never smoker Does the pt drink ETOH?: No Does the pt have substance abuse?: No - Immunizations Immunizations are current?: Yes - POLST Patient has POLST: No PD ED PE NORMAL - Vitals Vital signs reviewed: Yes - General General: Alert and oriented X 3, No acute distress, Well developed/nourished - HEENT HEENT: Atraumatic, PERRL, Moist mucous membranes, Pharynx benign - Derm Derm: Other (mild rash to chest and mild erythema behind bilateral ears) - Psych Psych: Normal mood, Normal affect PD ED PE EXPANDED - HEENT HEENT: Ears normal Results - Vitals Vitals: Vital Signs - 24 hr 01/13/24 12:14 Temperature 36.3 C L Heart Rate 87 Respiratory 16 Rate Blood Pressure 133/80 H O2 Saturation 96 Oxygen O2 Source Room air PD Medical Decision Making - ED course ED course: 33-year-old female presents emergency department for itchy skin and skin irritation. She shows no signs of anaphylaxis she has been taking Zyrtec at home daily so no need to give additional Zyrtec while she is here. Patient given 1 dose of oral dexamethasone to help with itching as well as a prescription of 5 days of prednisone that she is at home with. She was also given 40 mg of famotidine for H2 agustina. Patient is also asking for a topical steroid cream so desonide was prescribed to the patient but she is told to use with caution to only apply twice a day and to not exceed using this for longer than 2 weeks and that she would greatly benefit from following up with dermatology outpatient for further evaluation and better management of her eczema. Patient has EpiPen at home she safer discharge at this time no further emergent workup indicated return precautions given. Departure - Departure Disposition: 01 Home, Self Care Clinical Impression: Dermatitis Instructions: ED Allergic Reaction General Other, ED Dermatitis Non Specific Rash Prescriptions: predniSONE [Deltasone] 40 mg PO DAILY 5 Days #10 tablet Desonide 15 gm TP BID 14 Days #1 applic Comments: Thank you for trusting us with your care, we have evaluated you for your rash. We have given you famotidine and steroids here in the emergency department I s ent a steroid prescription to your preferred pharmacy on file. I also prescribed a topical steroid ointment cream called desonide that you can apply twice a day to the affected areas stay out of the sun while using this and wear with strong sunscreen while using this and do not use for longer than 2 weeks at a time. I would strongly encourage you to follow-up with manager project management for better management of this [place] we have dermatology clinic called [facility] their phone number is [phone]. Please come back to the emergency department having any worsening symptoms, shortness of breath, chest pain or other concerning emergent symptoms. Forms: PCP List Discharge Date/Time: 01/13/24 13:20
[2024-01-13] MEDS: FAMOTIDINE 20 MG TABLET PO STA (13:13)
[2024-01-13] MEDS: CHERRY SYRUP 10 ML UDC PO ONE (13:13)
[2024-01-13] MEDS: DEXAMETHASONE 10 MG/ML VIAL PO STA (13:14)
== END 2024-01-13 13:20 | disposition home or self-care (01) ==
LOC: ED 12:01
DX: L30.9 Dermatitis, unspecified (principal); Z79.899 Other long term (current) drug therapy
CPT/HCPCS: 99283; A9270